=== PATIENT | female | born 1985 | race Caucasian/White ===

== ENCOUNTER 2018-01-04 22:23 | Emergency (ER) | payer SELFPAY ==
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
[2018-01-04 23:40] LABS: ABS Basophils 0 10^3/ul (0-0.2); ABS Eosinophils 0.1 10^3/ul (0-0.6); ABS Lymphocytes 2.7 10^3/ul (1.0-4.8); ABS Monocytes 0.5 10^3/ul (0-0.8); ABS Neutrophils 4.7 10^3/ul (1.5-7.7); ABS Nucleated RBC 0 10^3/ul; Eosinophil % 0.9 % (0-6); Hematocrit 40 % (35-47); Hemoglobin 13.8 g/dl (12.0-16.0); Lymphocyte % 33.5 % (25-47); Mean Corpuscular HGB Conc 34 g/dl (31-36); Mean Corpuscular Hemoglobin 32 pg (27-31); Mean Corpuscular Volume 92 fL (80-97); Mean Platelet Volume 7.9 um3 (7.4-10.4); Nucleated Red Blood Cells % 0.1; Platelet Count 205 10^3/ul (150-450); Red Blood Count 4.36 10^6/ul (4.00-5.40); Red Cell Distribution Width 13 % (10.5-15)
[2018-01-04 23:50] LABS: Urine Appearance Clear; Urine Blood Negative (Negative); Urine Color Yellow; Urine Ketones Trace (Negative); Urine Protein Negative (Negative); Urine Urobilinogen Negative (Negative)
[2018-01-05] LABS: EGFR Non-African American 79.7 (>60)
[2018-01-05 05:14] VITALS: BP 120/71
== END 2018-01-05 04:45 | disposition home or self-care (01) ==
LOC: ED 22:23
DX: R45.851 Suicidal ideations (principal)
CPT/HCPCS: 36415; 80053; 80307; 80320; 80329; 81003; 84702; 85025; 99284; G0480

== ENCOUNTER 2018-07-25 11:19 | Inpatient (IN) | payer BC, OTHER ==
--- NOTE | 2018-07-25 11:39 | ED ---
Substance Abuse/Use - HPI Summary HPI Summary: A 33 y/o F presents to ED s/p Rx overdose as suicide attempt onset approx 1030. She says she took Oxymorphone 100mg and Klonopin 12 mg. 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 Associated sx: tired. She says she cant take care of her house. Per , pt has been going downhill since they bought their house. She left the house to go running, and he knew something was wrong and drove around looking for her. She previously tried to kill herself via OD in 2011. She has had several past admissions. PMHx: bipolar with psychotic features. - History Of Current Complaint Chief Complaint: EDOverdose Stated Complaint: OD PER P.O.A. Time Seen by Provider: 07/25/18 11:31 Hx Obtained From: Patient, Family/World History Teacher - Onset/Duration of Drug/ETOH Abuse: Hours - ~ 1 hour FENCE E[employer] SUPERVISOR Ingestion History: Type/Name Of Drug - see HPI, Approximate Time Of Ingestion - ~ 1030 Overdose Characteristics: Oral Associated Signs And Symptoms: Intentional Ingestion, Other: - pos: tired Related Hx: Prior Psych Admission - Allergies/Home Medications Allergies/Adverse Reactions: Allergies Allergy/AdvReac Type Severity Reaction Status Date / Time citalopram [From Celexa] Allergy Anxiety Verified 07/25/18 11:23 olanzapine [From Zyprexa] Allergy See Comment Verified 07/25/18 11:23 Home Medications: Home Medications Divalproex ER TAB(*) [Depakote ER TAB(*)] 500 mg PO TID 07/25/18 [History Confirmed 07/25/18] clonazePAM TAB(*) [KlonoPIN TAB(*)] 1 mg PO BEDTIME 07/25/18 [History Confirmed 07/25/18] risperiDONE TAB* [RisperDAL*] 2 mg PO DAILY 07/25/18 [History Confirmed 07/25/18 ] PMH/Surg Hx/FS Hx/Imm Hx Previously Healthy: No Sensory History: Denies: Hx Legally Blind, Hx Deafness Opthamlomology History: Denies: Hx Legally Blind Psychiatric History: Reports: Hx Inpatient Treatment, Hx Suicide Attempt, Hx of Violent Episodes Against Others Denies: Hx Eating Disorder Infectious Disease History: No Infectious Disease History: Denies: Traveled Outside the US in Last 30 Days - Family History Known Family History: Negative: Hypertension - Social History Occupation: Employed Full-time Lives: With Family Alcohol Use: None Hx Substance Use: No Substance Use Type: Reports: None Hx Tobacco Use: No Smoking Status (MU): Never Smoked Tobacco Review of Systems Positive: Fatigue - tired Psychological: Other - pos: SI attempt All Other Systems Reviewed And Are Negative: Yes Physical Exam - Summary Physical Exam Summary: GENERAL: Patient is a well-developed and nourished FEMALE who is lying comfortable in the stretcher. Patient is not in any acute respiratory distress. HEAD AND FACE: Normocephalic EYES: PERRLA, EOMI x 2. EARS: Hearing grossly intact. MOUTH: Oropharynx within normal limits. NECK: Supple, trachea is midline, no adenopathy, no JVD, no carotid bruit. CHEST: Symmetric, no tenderness at palpation LUNGS: Clear to auscultation bilaterally. No wheezing or crackles. CVS: Regular rate and rhythm, S1 and S2 present, no murmurs or gallops appreciated. ABDOMEN: Soft, non-tender. Bowel sounds are normal. No abdominal abnormal pulsations. EXTREMITIES: Full ROM in all major joints, no edema, no cyanosis or clubbing. NEURO: Alert and oriented x 3. No acute neurological deficits. Speech is normal and follows commands. SKIN: Dry and warm PSYCH: Flat affect, definite SI Triage Information Reviewed: Yes Vital Signs On Initial Exam: Initial Vitals Temp Pulse Resp BP Pulse Ox 97.1 F 96 16 110/68 96 07/25/18 11:20 07/25/18 11:20 07/25/18 11:20 07/25/18 11:20 07/25/18 11:20 Vital Signs Reviewed: Yes Diagnostics - Vital Signs Vital Signs Temp Pulse Resp BP Pulse Ox 07/25/18 11:20 97.1 F 96 16 110/68 96 - Laboratory Result Diagrams: 07/25/18 12:36 07/25/18 12:36 Lab Statement: Any lab studies that have been ordered have been reviewed, and results considered in the medical decision making process. - EKG 1138 Cardiac Rate: NL - 77 bpm EKG Rhythm: Sinus Rhythm Summary of EKG Findings: Nml interval Re-Evaluation - Re-Evaluation 1 Re-Evaluation Time: 12:21 Change: Unchanged Comment: Pt's medication was instant release. Course/Dx - Course Course Of Treatment: Pt is a 33 y/o F who OD'ed as suicide attempt on Klonopin 12mg and Oxymorphone 100mg at approx 1030. 1219: Spoke with poison control who recommends EKG, tylenol/aspirin levels, and 6 hours observation from ED arrival. Case discussed with hospitalist, Dr. Kuhn. I discussed results with patient. The patient agrees with this plan. The pt will be admitted. - Diagnoses Provider Diagnoses: Drug overdose, intentional - Physician Notifications Discussed Care Of Patient With: Maria C Kuhn Time Discussed With Above Provider: 13:00 Instructed by Provider To: Admit As Inpatient Discharge - Sign-Out/Discharge Documenting (check all that apply): Patient Departure - ADMIT Patient Received Moderate/Deep Sedation with Procedure: No - Discharge Plan Condition: Stable Disposition: ADMITTED TO [facility] - Billing Disposition and Condition Condition: STABLE Disposition: Admitted to [facility] - Attestation Statements Document Initiated by Scribe: Yes Documenting Scribe: Naida Steen Provider For Whom Scribe is Documenting (Include Credential): Dr. Checo Mehta MD Scribe Attestation: I, archana Wilsoned for Dr. Checo Mehta MD on 07/25/18 at 2116. Scribe Documentation Reviewed: Yes Provider Attestation: The documentation as recorded by the Naida santos accurately reflects the service I personally performed and the decisions made by me, Dr. Checo Mehta MD Status of Scribe Document: Viewed
[2018-07-25] MEDS ORDERED: NS 0.9% 1000 ML** 1,000 ML IV ONE (12:05)
[2018-07-25] MEDS ORDERED: Naloxone* 0.4 MG/ML 1 ML VIAL IV PUSH ONE (12:06)
[2018-07-25 12:48] LABS: ABS Basophils 0 10^3/ul (0-0.2); ABS Eosinophils 0 10^3/ul (0-0.6); ABS Lymphocytes 1.8 10^3/ul (1.0-4.8); ABS Monocytes 0.6 10^3/ul (0-0.8); ABS Neutrophils 4.9 10^3/ul (1.5-7.7); ABS Nucleated RBC 0 10^3/ul; Eosinophil % 0.2 %; Hematocrit 41 % (33-41); Hemoglobin 13.8 g/dL (12.0-16.0); Mean Corpuscular HGB Conc 33 g/dL (31-36); Mean Corpuscular Hemoglobin 31 pg (27-31); Mean Corpuscular Volume 93 fL (80-97); Mean Platelet Volume 8.1 fL (7.4-10.4); Nucleated Red Blood Cells % 0.1; Platelet Count 166 10^3/uL (150-450); Red Blood Count 4.43 10^6 /uL (3.70-4.87); Red Cell Distribution Width 13 % (10.5-15); White Blood Count 7.3 10^3/uL (3.5-10.8)
[2018-07-25 13:05] LABS: ALT 6 U/L (7-52); AST 11 U/L (13-39); Albumin 3.9 g/dL (3.2-5.2); Albumin/Globulin Ratio 1.8 (1-3); Alkaline Phosphatase 68 U/L (34-104); Anion Gap 5 mmol/L (2-11); BUN/Creatinine Ratio 11.1 (8-20); Blood Urea Nitrogen 9 mg/dL (6-24); CO2 Carbon Dioxide 26 mmol/L (22-32); Calcium 8.9 mg/dL (8.6-10.3); Chloride 110 mmol/L (101-111); EGFR African American 98.5 (>60); EGFR Non-African American 81.4 (>60); Globulin 2.2 g/dL (2-4); Glucose 75 mg/dL (70-100); Potassium 4.3 mmol/L (3.5-5.0); Sodium 141 mmol/L (135-145); Total Protein 6.1 g/dL (6.4-8.9)
[2018-07-25 13:11] LABS: HCG Pregnancy < 0.60 mIU/mL
[2018-07-25 13:32] LABS: Acetaminophen < 15 mcg/mL; Alcohol < 10 mg/dL (<10); Salicylate < 2.50 mg/dL (<30)
[2018-07-25 13:47] LABS: TSH (Thyroid Stimulating Horm) 1.83 mcIU/mL (0.34-5.60)
[2018-07-25] MEDS ORDERED: PROCHLORPERAZINE INJ 5 MG/ML 2 ML VIAL IV PRN (14:04)
[2018-07-25] MEDS ORDERED: Acetaminophen TAB* 325 MG PO PRN (14:04)
[2018-07-25] MEDS: Lactated Ringers 1000 ML Bag* 1,000 ML IV SCH (15:37)
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
[2018-07-26] MEDS ORDERED: Naloxone* 0.4 MG/ML 1 ML VIAL IV PUSH ONE (01:03)
[2018-07-26] MEDS: Lactated Ringers 1000 ML Bag* 1,000 ML IV SCH ×2 (01:52→11:57)
--- NOTE | 2018-07-26 02:30 | PN ---
Hospitalist Progress Note Date of Service: 07/26/18 Cross coverage note: Called to eval patient for visible carotid pulsations and RR 8. RR 8, other VSS pt very lethargic, only responds to voice as I leave room, states slowly: "I'm awake you can ask me questions" pupils equal and pinpoint, reactive to light carotid pulsations visible b/l VBG pH = 7.18 / pCO2 66 Last dose of Narcan over 12 hours ago. Pt administered 0.4mg IV Narcan - had quick improvement in mental status and respirations. Returned to prior status within 60 minutes. Decision made to transfer to ICU for Narcan drip with close monitoring of mental status. Unclear why patient would have more severe symptoms of opioid intoxication now - possible that she took long acting opioids which are still being absorbed. Will also monitor boyfriend - at bedside - as it is possible she could have ingested more opioids in the hospital. Will repeat VBG and other labs after gtt. Noted that salicylates/APAP negative on admission. Low concern for other process or toxic ingestion at this time, as pt had reversal of symptoms with Narcan.
[2018-07-26] MEDS: Naloxone* 2 MG in NS 0.9% 250 ML* 245 ML IV SCH ×2 (02:53→16:03)
[2018-07-26 04:47] LABS: Hematocrit 44 % (33-41); Hemoglobin 14.5 g/dL (12.0-16.0); Mean Corpuscular HGB Conc 33 g/dL (31-36); Mean Corpuscular Hemoglobin 31 pg (27-31); Mean Corpuscular Volume 94 fL (80-97); Mean Platelet Volume 8.4 fL (7.4-10.4); Platelet Count 156 10^3/uL (150-450); Red Blood Count 4.65 10^6 /uL (3.70-4.87); Red Cell Distribution Width 14 % (10.5-15); White Blood Count 6.8 10^3/uL (3.5-10.8)
[2018-07-26 05:08] LABS: Albumin 3.8 g/dL (3.2-5.2); Albumin/Globulin Ratio 1.9 (1-3); BUN/Creatinine Ratio 10.8 (8-20); Calcium 8.6 mg/dL (8.6-10.3); EGFR African American 95.8 (>60); EGFR Non-African American 79.2 (>60); Potassium 3.9 mmol/L (3.5-5.0); Total Bilirubin 0.4 mg/dL (0.2-1.0); Total Protein 5.8 g/dL (6.4-8.9)
[2018-07-26 07:13] LABS: Urine Appearance Clear; Urine Bacteria Absent (Absent); Urine Bilirubin Negative (Negative); Urine Blood 1+ (Negative); Urine Color Yellow; Urine Glucose Negative (Negative); Urine Ketones 1+ (Negative); Urine Nitrite Negative (Negative); Urine Protein Negative (Negative); Urine Red Blood Cell Trace(0-2/hpf) (Absent); Urine Specific Gravity 1.013 (1.010-1.030); Urine Squamous Epithelial Cell Present (Absent); Urine Urobilinogen Negative (Negative); Urine White Blood Cell Trace(0-5/hpf) (Absent)
[2018-07-26 07:43] LABS: Barbiturates Urine Screen None Detected (None Detect); Benzodiazepine Urine Screen None Detected (None Detect); Urine Cannabinoids Screen Presumptive Positive (None Detect)
--- NOTE | 2018-07-26 09:04 | PN ---
Subjective Date of Service: 07/26/18 Interval History: the oxymorphone 100mg was extended release. 12mg (6x2mg) klonopin. Denies other substances. Saw Dr. Santos on 07/15 Andres says she has attempted suicide 3x in last 2 years. Objective Active Medications: Acetaminophen (Tylenol Tab*) 650 mg PO Q6H PRN PRN Reason: pain/fever Lactated Ringer's (Lactated Ringers 1000 Ml Bag*) 1,000 mls @ 100 mls/hr IV PER RATE [facility] Last Admin: 07/26/18 01:52 Dose: 100 mls/hr Naloxone HCl 2 mg/ Sodium (Chloride) 250 mls @ 25 mls/hr IV Q10H [facility] Last Admin: 07/26/18 02:53 Dose: 25 mls/hr Nicotine (Nicotine Inhaler*) 10 mg INH Q2H PRN PRN Reason: CRAVING Prochlorperazine Edisylate (Compazine Inj*) 5 mg IV Q6H PRN PRN Reason: NAUSEA/VOMITING Vital Signs - 8 hr 07/26/18 07/26/18 07/26/18 02:42 02:43 02:45 Temperature 99.0 F Pulse Rate 68 81 88 Respiratory 13 16 13 Rate Blood Pressure 96/66 96/66 100/59 (mmHg) O2 Sat by Pulse 95 96 96 Oximetry 07/26/18 07/26/18 07/26/18 03:00 03:01 03:30 Temperature Pulse Rate 75 75 75 Respiratory 14 13 11 Rate Blood Pressure 99/60 110/65 (mmHg) O2 Sat by Pulse 95 95 98 Oximetry 07/26/18 07/26/18 07/26/18 04:00 04:24 04:33 Temperature 99.1 F Pulse Rate 71 78 Respiratory 9 18 Rate Blood Pressure 107/63 108/62 (mmHg) O2 Sat by Pulse 98 97 Oximetry 07/26/18 07/26/18 07/26/18 05:00 05:30 06:00 Temperature Pulse Rate 62 68 60 Respiratory 13 18 23 Rate Blood Pressure 106/60 91/66 89/63 (mmHg) O2 Sat by Pulse 95 96 96 Oximetry 07/26/18 07/26/18 07/26/18 06:30 07:00 07:02 Temperature Pulse Rate 71 71 71 Respiratory 25 15 18 Rate Blood Pressure 91/57 99/62 (mmHg) O2 Sat by Pulse 97 96 95 Oximetry 07/26/18 07/26/18 07/26/18 07:30 08:00 08:01 Temperature 98.7 F Pulse Rate 66 62 58 Respiratory 14 18 13 Rate Blood Pressure 93/60 101/54 (mmHg) O2 Sat by Pulse 94 94 95 Oximetry 07/26/18 08:28 Temperature Pulse Rate Respiratory 14 Rate Blood Pressure (mmHg) O2 Sat by Pulse Oximetry Oxygen Devices in Use Now: None Result Diagrams: 07/26/18 04:34 07/26/18 04:34 Microbiology and Other Data: Microbiology 07/26/18 02:52 Nasal Screen MRSA (PCR) - Final Nasal Mrsa Not Detected Assess/Plan/Problems-Billing Assessment:
[2018-07-26] MEDS ORDERED: Al Hydrox/Mg Hydrox/Simet LIQ* 30 ML UDC PO PRN (14:03)
[2018-07-26 14:59] VITALS: BP 98/53
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
[2018-07-27] MEDS: Vitamin THERAPEUTIC TAB PO SCH (08:07)
[2018-07-27 08:34] LABS: HDL Cholesterol 32.1 mg/dL
[2018-07-27] MEDS: Naloxone* 2 MG in NS 0.9% 250 ML* 245 ML IV SCH (09:32)
[2018-07-28] MEDS: Vitamin THERAPEUTIC TAB PO SCH (09:05)
[2018-07-28] MEDS: risperiDONE TAB* 2 MG PO SCH (09:05)
[2018-07-28] MEDS: Divalproex ER TAB(*) 500 MG PO SCH ×2 (09:05→21:09)
[2018-07-28] MEDS: Nicotine Inhaler* 10 MG AMP INH PRN (14:28)
[2018-07-28] MEDS: Mouth Piece, Nicotine* 1 EACH CARTRIDGE ONE (14:30)
--- NOTE | 2018-07-28 19:22 | PN ---
Subjective - Subjective Date of Service: 07/28/18 Service Type: 49033 Hosp care 25 min moderate complexity Subjective: Gurvinder hasn't been a problem on the unit until her came for visit. He wanted to comein with contrabands like cell phones he wasn't happy and so was she unhappy. Otherwise she did stay to self mostly and was foung eating by the exit door as she was expecting her . Objective - General Observations Appearance: Well Groomed Appears Stated Age: Yes Stature: WNL Posture: WNL Eye Contact: Avoidant Behavior/Activity: WNL - Interaction Observations Attitude Towards Examiner: Cooperative Stated Mood: Anxious Affect: Restricted Speech Pattern/Tone: Clear Thought Process: Coherent, Goal Directed Perception: WNL Hallucination Type: None Delusion Type: None - Cognitive Function Orientation: A&O x 4 Level of Consciousness: Alert Cognition: WNL Estimated Intelligence: Normal Insight: WNL Judgment Within Normal Limits: No Ability to Make Reasonable Decisions: Mildly Impaired - Medication Compliance Cooperative with Inpatient Medication Regimen: Yes - Group Participation Participates in Group Activities: No Assessment - Assessment Merits Inpatient Hospitalization: For Immediate Safety, For Stabilization, For Ongoing Evaluation, Pending Safe DC Plan Plan - Plan Treatment Plan: Name: GURVINDER PABLO Birthdate: 1985 [id number] Continued Medication Management: Continue Outpt Medication Medications: Current Medications Acetaminophen (Tylenol Tab*) 650 mg PO Q6H PRN PRN Reason: pain/fever Al Hydrox/Mg Hydrox/Simethicone (Maalox Plus*) 30 ml PO Q4H PRN PRN Reason: INDIGESTION Divalproex Sodium (Depakote Er Tab(*)) 500 mg PO QAM [facility] Last Admin: 07/28/18 09:05 Dose: 500 mg Divalproex Sodium (Depakote Er Tab(*)) 1,000 mg PO BEDTIME [facility] Lactated Ringer's (Lactated Ringers 1000 Ml Bag*) 1,000 mls @ 100 mls/hr IV PER RATE [facility] Last Admin: 07/26/18 11:57 Dose: 100 mls/hr Multivitamins (Theragran Tab*) 1 tab PO DAILY [facility] Last Admin: 07/28/18 09:05 Dose: 1 tab Nicotine (Nicotine Inhaler*) 10 mg INH Q2H PRN PRN Reason: CRAVING Last Admin: 07/28/18 14:28 Dose: 10 mg Nicotine (Nicotine Patch 14 Mg/24 Hr*) 1 patch TRANSDERM DAILY [facility] Pharmacy Profile Note (Nicotine Patch Removal Note*) 1 note PATCH OFF 2100 [facility] Prochlorperazine Edisylate (Compazine Inj*) 5 mg IV Q6H PRN PRN Reason: NAUSEA/VOMITING Risperidone (Risperdal*) 2 mg PO DAILY [facility] Last Admin: 07/28/18 09:05 Dose: 2 mg - Discharge Plan Discharge Plan: Drug/Alcohol Rehab
[2018-07-28] MEDS: Nicotine Patch Removal NOTE PATCH OFF SCH (22:50)
[2018-07-28] MEDS: Nicotine PATCH 14 MG/24 HR* PATCH TRANSDERM SCH (22:50)
[2018-07-29] MEDS ORDERED: Mouth Piece, Nicotine* 1 EACH CARTRIDGE ONE (08:47)
[2018-07-29] MEDS: Nicotine PATCH 14 MG/24 HR* PATCH TRANSDERM SCH (08:48)
[2018-07-29] MEDS: Divalproex ER TAB(*) 500 MG PO SCH ×2 (08:48→21:01)
[2018-07-29] MEDS: Nicotine Inhaler* 10 MG AMP INH PRN ×2 (08:48→12:45)
[2018-07-29] MEDS: Vitamin THERAPEUTIC TAB PO SCH (08:48)
[2018-07-29] MEDS: Mouth Piece, Nicotine* 1 EACH CARTRIDGE ONE (08:48)
[2018-07-29] MEDS: risperiDONE TAB* 2 MG PO SCH (08:48)
--- NOTE | 2018-07-29 16:33 | PN ---
Subjective - Subjective Date of Service: 07/29/18 Service Type: 82225 Hosp care 25 min moderate complexity Subjective: Patient is pleasant and cooperative with interview. She reports feeling "overwhelmingness and despair" prior to suicide attempt. She states that "the problem is mainly me - I can't deal" in regards to caring for her 's medical needs. She states that they spend most of their time in one room due his allergy to dust and that she must abide various routines. She states "I feel I'm a bad person." Patient states that she was fired from [employer] last fall due to multiple call-ins r/t her own mental illness. She states she utilizes cannabis to "calm the vibrations all over my body." She states she sometimes skips taking medications in order to gain full effect from marijuana. She is receptive to psychoeducation that the "vibrating" may be a symptom of arcelia. She states that her mother is coming tomorrow and visiting for one week. She is agreeable to treatment team meeting with her, as well. Objective - General Observations Appearance: Well Groomed Stature: WNL Posture: WNL Eye Contact: Intermittent Behavior/Activity: Impulsive - Interaction Observations Attitude Towards Examiner: Cooperative Stated Mood: Euthymic Speech Pattern/Tone: Clear, Appropriate, Normal Volume Thought Process: Coherent Perception: WNL Thought Content: WNL Hallucination Type: Denies Delusion Type: Denies - Cognitive Function Orientation: A&O x 4 Level of Consciousness: Alert Cognition: WNL Estimated Intelligence: Normal Insight: WNL Judgment Within Normal Limits: No Ability to Make Reasonable Decisions: Moderately Impaired - Medication Compliance Cooperative with Inpatient Medication Regimen: Yes - Group Participation Participates in Group Activities: Yes Assessment - Assessment Merits Inpatient Hospitalization: For Immediate Safety, For Stabilization Plan - Plan Treatment Plan: Name: GURVINDER PABLO Birthdate: 1985 [id number] continue acute intensive psychiatric treatment. obtain valproic acid level. collaborate with outpatient providers. schedule family meeting with patient's and mother. Medications: Current Medications Acetaminophen (Tylenol Tab*) 650 mg PO Q6H PRN PRN Reason: pain/fever Al Hydrox/Mg Hydrox/Simethicone (Maalox Plus*) 30 ml PO Q4H PRN PRN Reason: INDIGESTION Divalproex Sodium (Depakote Er Tab(*)) 500 mg PO QAM [facility] Last Admin: 07/29/18 08:48 Dose: 500 mg Divalproex Sodium (Depakote Er Tab(*)) 1,000 mg PO BEDTIME [facility] Last Admin: 07/28/18 21:09 Dose: 1,000 mg Multivitamins (Theragran Tab*) 1 tab PO DAILY [facility] Last Admin: 07/29/18 08:48 Dose: 1 tab Nicotine (Nicotine Inhaler*) 10 mg INH Q2H PRN PRN Reason: CRAVING Last Admin: 07/29/18 12:45 Dose: 10 mg Nicotine (Nicotine Patch 14 Mg/24 Hr*) 1 patch TRANSDERM DAILY [facility] Last Admin: 07/29/18 08:48 Dose: Not Given Pharmacy Profile Note (Nicotine Patch Removal Note*) 1 note PATCH OFF 2100 [facility] Last Admin: 07/28/18 22:50 Dose: Not Given Risperidone (Risperdal*) 2 mg PO DAILY [facility] Last Admin: 07/29/18 08:48 Dose: 2 mg - Discharge Plan Discharge Plan: Inpatient Hospitalization Outpatient Program: [facility]
[2018-07-29] MEDS: Nicotine Patch Removal NOTE PATCH OFF SCH (21:02)
[2018-07-30] MEDS: Divalproex ER TAB(*) 500 MG PO SCH ×2 (08:22→20:37)
[2018-07-30] MEDS: risperiDONE TAB* 2 MG PO SCH (08:22)
[2018-07-30] MEDS: Vitamin THERAPEUTIC TAB PO SCH (08:22)
[2018-07-30] MEDS: Nicotine PATCH 14 MG/24 HR* PATCH TRANSDERM SCH (08:23)
[2018-07-30] MEDS: Nicotine Inhaler* 10 MG AMP INH PRN ×2 (11:00→16:32)
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
[2018-07-30] MEDS: Nicotine Patch Removal NOTE PATCH OFF SCH (21:48)
[2018-07-31] MEDS: Nicotine PATCH 14 MG/24 HR* PATCH TRANSDERM SCH (09:00)
[2018-07-31] MEDS: Vitamin THERAPEUTIC TAB PO SCH ×2 (09:00→09:01)
[2018-07-31] MEDS: Nicotine Inhaler* 10 MG AMP INH PRN (09:00)
--- NOTE | 2018-07-31 11:55 | DCNOTE ---
Subjective - Subjective Service Types: 62109 Hosp DC Day Mgmt complex over 30 min Discharge Date: 07/31/18 Subjective: Patient reports desire to be discharged. Her mother was present for discharge planning discussion. We discussed family concerns and dynamics of her marriage. Patient denies is controlling, manipulative or such. Patient reports she has been "running from the situation, not my " in regards to being overwhelmed with unpacking and organizing their dwelling. Patient reports desire to participate in [facility] program. Objective - Appearance Appearance: Well Developed/Nourished Dysmorphic Features: No Hygiene: Normal Grooming: Well Kept - Behavior Psychomotor Activities: Normal Exhibits Abnormal Movement: No - Attitude and Relatedness Attitude and Relatedness: Cooperative Eye Contact: Good - Speech Quality: Unpressured Latencies: Normal Quantity: Appropriate - Mood Patient's Decription of Mood: "Okay" - Affect Observed Affect: Good Affect Consistent with: Euthymia - Thought Process Patient's Thought Process: Coherent, Goal Directed Thought Content: No Passive Wish, No Suicidal Planning, No Homicidal Ideation, No Paranoid Ideation - Sensorium Experiencing Hallucinations: No, Sensorium is Clear Type of Hallucinations: Visual: No, Auditory: No, Command: No - Level of Consciousness Level of Consciousness: Alert Orientation: Yes Intact, Yes Orientated to Time, Yes Orientated to Place, Yes Orientated to Person - Impulse Control Impulse Control: Intact - Insight and Judgement Insight and Judgement: Fair - Group Participation Particating in Group Activities: Yes - Medication Management Medication Management Adherence: Yes DC Assessment - Assessment Clinical Impression: 33yo female who transferred to [facility] after stabilization in ICU s/p overdose attempt. She has participated fully in [facility] programming and stabilized on current medications. Merits Inpatient Hospitalization: No Clear for Discharge: Adequate Clinical Respons, Acceptable Safety Profile Inpatient DSM-V Dx: F31.4 Discharge Planning - Discharge Planning Discharge Plan: Outpatient Follow Up Outpatient Program: [facility] Recommendations for Continuing Care: Medication Management, Psychotherapy, Substance Abuse Counseling, Primary Care Followup Medications: Current Medications Divalproex Sodium (Depakote Er Tab(*)) 1,500 mg PO BEDTIME ALYSE Risperidone (Risperdal*) 2 mg PO BEDTIME ALYSE Discharge Planning: Prescriptions provided for discharge [x] Yes [] No Follow up care details as per social work arrangements: [facility]: You have a follow up appointment with Dr. Santos tomorrow, at 2:30pm. Please let them know you are recommended to [facility]. [facility]: You have an intake appointment scheduled on Sunday , 08/07 with Ngozi at 8:30am to fill out necessary paperwork. Patient response to discharge plan: [x] eager for discharge [x] agreeable with discharge plan [] ambivalent about discharge [] disagrees with discharge today
[2018-07-31] MEDS ORDERED: Divalproex ER TAB(*) 500 MG PO SCH (21:00)
[2018-07-31] MEDS ORDERED: risperiDONE TAB* 2 MG PO SCH (21:00)
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
== END 2018-07-31 13:30 | disposition home or self-care (01) | DRG 753 ==
LOC: ED 11:19 → MEDTELE 14:00 → ICU 07-26 02:16 → BSU 07-26 14:03 → OBSVTOIN 07-26 14:03
PROVIDERS: ADMIT Internal Medicine; ATTEND Psychiatry & Neurology Psychiatry
DX: F31.4 Bipolar disorder, current episode depressed, severe, without psychotic features (principal); T40.2X2A Poisoning by other opioids, intentional self-harm, initial encounter; T42.4X2A Poisoning by benzodiazepines, intentional self-harm, initial encounter; R41.82 Altered mental status, unspecified; F60.3 Borderline personality disorder; Z91.5 Personal history of self-harm; Z88.8 Allergy status to other drugs, medicaments and biological substances; Y92.9 Unspecified place or not applicable; Z56.0 Unemployment, unspecified; Z81.1 Family history of alcohol abuse and dependence; Z81.8 Family history of other mental and behavioral disorders; Z80.3 Family history of malignant neoplasm of breast
CPT/HCPCS: 36415; 80053; 80061; 80164; 80307; 80320; 80329; 81003; 81015; 82803; 83036; 84443; 84702; 85025; 85027; 87086; 87641; 93005; 99222; 99232; 99233; 99238; 99285; A9270-GY; G0480; J2310

== ENCOUNTER 2018-08-14 15:51 | Emergency (ER) | payer BC, MEDICAID, OTHER ==
--- NOTE | 2018-08-14 16:36 | ED ---
Psychiatric Complaint - HPI Summary HPI Summary: Pt is a 33 y/o F presenting to the ED with a chief psychiatric complaint. She states she had a suicide attempt about two weeks ago, then got a hold of some marijuana. The issue with this was that she felt unwell when she smoked marijuana, and started thinking that the suicide attempt came from how she felt when she was smoking marijuana. Per , she has compulsive behavior to go and get marijuana, and one morning she tried to run away 6x to get marijuana. [facility] told her to come and get evaluated here in the ED. She currently denies SI/HI, hallucinations, feeling depressed or anxious, but she does feel somewhat woozy. 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 Onset/Duration: Gradual Onset, Lasting Days, Resolved Timing: Intermittent Episode Lasting - days Severity Initially: Moderate Severity Currently: Mild Character: Depressed, Anxious Aggravating Factor(s): Drug Use - marijuana Alleviating Factor(s): Nothing Associated Signs And Symptoms: Positive: Paranoid Behavior Has Suicidal: Denies: Thoughts Has Homicidal: Denies: Thoughts - Allergies/Home Medications Allergies/Adverse Reactions: Allergies Allergy/AdvReac Type Severity Reaction Status Date / Time citalopram [From Celexa] Allergy Anxiety Verified 08/14/18 16:00 olanzapine [From Zyprexa] Allergy See Comment Verified 08/14/18 16:00 Home Medications: Home Medications [place] Carbonate [[place] Carbonate 600 mg cap] 600 mg PO DAILY 08/14/18 [ History Confirmed 08/14/18] clonazePAM TAB(*) [KlonoPIN TAB(*)] 1 mg PO DAILY 08/14/18 [History Confirmed ] risperiDONE TAB* [Risperdal*] 2 mg PO DAILY 08/14/18 [History Confirmed 08/14/18 ] PMH/Surg Hx/FS Hx/Imm Hx Previously Healthy: Yes Endocrine/Hematology History: Denies: Hx Diabetes Cardiovascular History: Denies: Hx Hypertension Sensory History: Denies: Hx Contacts or Glasses, Hx Legally Blind, Hx Deafness, Hx Hearing Aid Opthamlomology History: Denies: Hx Contacts or Glasses, Hx Legally Blind Psychiatric History: Reports: Hx Inpatient Treatment, Hx Suicide Attempt, Hx of Violent Episodes Against Others Denies: Hx Eating Disorder Infectious Disease History: No Infectious Disease History: Denies: Traveled Outside the [place] in Last 30 Days - Family History Known Family History: Negative: Hypertension - Social History Alcohol Use: None Hx Substance Use: Yes Substance Use Type: Reports: Marijuana Hx Tobacco Use: No Smoking Status (MU): Never Smoked Tobacco Review of Systems Positive: Fatigue Negative: Anxious, Depressed, Other - SI/HI All Other Systems Reviewed And Are Negative: Yes Physical Exam - Summary Physical Exam Summary: Constitutional: Well-developed, Well-nourished, Alert. (-) Distressed Skin: Warm, Dry HENT: Normocephalic; Atraumatic Eyes: Conjunctiva normal Neck: Musculoskeletal ROM normal neck. (-) JVD, (-) Stridor, (-) Tracheal deviation Cardio: Rhythm regular, rate normal, Heart sounds normal; Intact distal pulses; The pedal pulses are 2+ and symmetric. Radial pulses are 2+ and symmetric. (-) Murmur Pulmonary/Chest wall: Effort normal. (-) Respiratory distress, (-) Wheezes, (-) Rales Abd: Soft, (-) tenderness, (-) Distension, (-) Guarding, (-) Rebound Musculoskeletal: (-) Edema Lymph: (-) Cervical adenopathy Neuro: Alert, Oriented x3 Psych: Mood and affect implies poor judgment Triage Information Reviewed: Yes Vital Signs On Initial Exam: Initial Vitals Temp Pulse Resp BP Pulse Ox 97.5 F 81 17 114/70 100 08/14/18 15:54 08/14/18 15:54 08/14/18 15:54 08/14/18 15:54 08/14/18 15:54 Vital Signs Reviewed: Yes Diagnostics - Vital Signs Vital Signs Temp Pulse Resp BP Pulse Ox 08/14/18 15:54 97.5 F 81 17 114/70 100 - Laboratory Result Diagrams: 08/14/18 16:32 08/14/18 16:32 Lab Statement: Any lab studies that have been ordered have been reviewed, and results considered in the medical decision making process. Course/Dx - Course Course Of Treatment: Pt is a 33 y/o F presenting to the ED for a psychiatric complaint. She tried to commit suicide about 2 weeks ago, and is now realizing that she thinks her suicidal attempt may have been because of the marijuana she used. Per , she has compulsive behavior to go and get marijuana, and one morning she tried to run away 6x to get marijuana. [facility] told her to come and get evaluated here in the ED. She currently denies SI/HI, hallucinations, feeling depressed or anxious, but she does feel somewhat woozy. The pt will be admitted pending evaluation by provider in the morning. - Differential Dx/Clinical Impression Provider Diagnosis: Drug-induced psychotic disorder Discharge - Sign-Out/Discharge Documenting (check all that apply): Sign-Out Patient Signing out patient TO: Raul Menezes Patient Received Moderate/Deep Sedation with Procedure: No - Discharge Plan Condition: Stable Referrals: No Primary Care Phys,NOPCP [Primary Care Provider] - - Billing Disposition and Condition Condition: STABLE - Attestation Statements Document Initiated by Scribe: Yes Documenting Scribe: Kathy Ordonez Provider For Whom Scribe is Documenting (Include Credential): Laila Avalos MD. Scribe Attestation: IKathy, scrstephaneed for Laila Kaur MD. on 08/14/18 at 2230. Scribe Documentation Reviewed: Yes Provider Attestation: The documentation as recorded by the scribeKathy accurately reflects the service I personally performed and the decisions made by me, Laila Kaur MD. Status of Scribe Document: Viewed
[2018-08-14 16:39] LABS: ABS Basophils 0 10^3/ul (0-0.2); ABS Eosinophils 0.1 10^3/ul (0-0.6); ABS Lymphocytes 2.1 10^3/ul (1.0-4.8); ABS Monocytes 0.5 10^3/ul (0-0.8); ABS Neutrophils 4.9 10^3/ul (1.5-7.7); ABS Nucleated RBC 0 10^3/ul; Eosinophil % 1.1 %; Hematocrit 41 % (35-47); Lymphocyte % 27.2 %; Mean Corpuscular HGB Conc 34 g/dL (31-36); Mean Corpuscular Hemoglobin 32 pg (27-31); Mean Corpuscular Volume 93 fL (80-97); Mean Platelet Volume 7.8 fL (7.4-10.4); Nucleated Red Blood Cells % 0; Platelet Count 191 10^3/uL (150-450); Red Blood Count 4.43 10^6 /uL (3.70-4.87); Red Cell Distribution Width 14 % (10.5-15); White Blood Count 7.6 10^3/uL (3.5-10.8)
[2018-08-14 16:45] LABS: Urine Appearance Clear; Urine Bilirubin Negative (Negative); Urine Blood Negative (Negative); Urine Color Straw; Urine Glucose Negative (Negative); Urine Ketones Negative (Negative); Urine Nitrite Negative (Negative); Urine Protein Negative (Negative); Urine Specific Gravity 1.004 (1.010-1.030); Urine Urobilinogen Negative (Negative)
[2018-08-14 16:55] LABS: ALT 7 U/L (7-52); AST 13 U/L (13-39); Albumin 4.2 g/dL (3.2-5.2); Albumin/Globulin Ratio 1.8 (1-3); Alkaline Phosphatase 66 U/L (34-104); Anion Gap 5 mmol/L (2-11); BUN/Creatinine Ratio 8.6 (8-20); Blood Urea Nitrogen 7 mg/dL (6-24); CO2 Carbon Dioxide 28 mmol/L (22-32); Calcium 9.5 mg/dL (8.6-10.3); Chloride 109 mmol/L (101-111); EGFR African American 98.5 (>60); EGFR Non-African American 81.4 (>60); Globulin 2.4 g/dL (2-4); Glucose 92 mg/dL (70-100); Sodium 142 mmol/L (135-145); Total Protein 6.6 g/dL (6.4-8.9)
[2018-08-14 16:57] LABS: Urine Benzodiazepine Screen None Detected (None Detect); Urine Opiates Screen None Detected (None Detect)
[2018-08-14 17:20] LABS: Acetaminophen < 15 mcg/mL; Alcohol < 10 mg/dL (<10); Salicylate < 2.50 mg/dL (<30)
[2018-08-14 17:33] LABS: TSH (Thyroid Stimulating Horm) 3.05 mcIU/mL (0.34-5.60)
[2018-08-14 17:39] LABS: HCG Pregnancy 0.63 mIU/mL
--- NOTE | 2018-08-14 22:39 | ED ---
Progress - Progress Note Progress Note: Receiving sign out from Dr. Kaur at shift change, pending MHE. Pt has already been medically cleared and will have her evaluation in the morning. Pt's condition has been stable. She will be signed out to Dr. Ruelas at shift change, pending MHE. Course/Dx - Diagnoses Provider Diagnoses: Drug-induced psychotic disorder Discharge - Sign-Out/Discharge Documenting (check all that apply): Sign-Out Patient, Receiving Sign-Out Signing out patient TO: Shaheed Ruelas Receiving patient FROM: Laila Kaur Patient Received Moderate/Deep Sedation with Procedure: No - Discharge Plan Condition: Stable Referrals: No Primary Care Phys,NOPCP [Primary Care Provider] - - Billing Disposition and Condition Condition: STABLE - Attestation Statements Document Initiated by Scribe: Yes Documenting Scribe: Ayla Casper Provider For Whom Scribe is Documenting (Include Credential): Raul Menezes MD Scribe Attestation: IAyla, scribed for Raul Menezes MD on 08/15/18 at 0615. Scribe Documentation Reviewed: Yes Provider Attestation: The documentation as recorded by the Ayla santos accurately reflects the service I personally performed and the decisions made by , Raul Menezes MD Status of Scribe Document: Viewed
--- NOTE | 2018-08-15 07:09 | ED ---
Progress - Progress Note Progress Note: RECEIVING SIGN-OUT FROM DR. MENEZES AT SHIFT CHANGE PENDING MHE. 1005: Consult with Dr. De Anda psych Pt claims to be addicted to marijuana and unable to find rehab. Patient's insists she be admitted. She is not suicidal. Pt on MH hold until social work consult recommends disposition. Dx: cannabis use disorder 1028: Consult with social Jin work Pt will be discharged. She is doing well in out-patient alcohol and drug rehab. Course/Dx - Course Course Of Treatment: RECEIVING SIGN-OUT FROM DR. MENEZES AT SHIFT CHANGE PENDING MHE. 1005: Per kennedy Yeung, patient claims to be addicted to marijuana. Patient's insists she be admitted. She is not suicidal. Pt on MH hold until social work consult recommends disposition. Dx: cannabis use disorder, severe. Consulted with social aleksandr Abdi, who will be discharged with referrals to [facility], and drug/alcohol rehab. - Diagnoses Provider Diagnoses: Cannabis use disorder, severe, dependence Discharge - Sign-Out/Discharge Documenting (check all that apply): Patient Departure - DC, Receiving Sign-Out Receiving patient FROM: Raul Menezes - pending MHE Patient Received Moderate/Deep Sedation with Procedure: No - Discharge Plan Condition: Stable Disposition: HOME Patient Education Materials: Mood Disorders (ED) Referrals: No Primary Care Phys,NOPCP [Primary Care Provider] - - Billing Disposition and Condition Condition: STABLE Disposition: Home - Attestation Statements Document Initiated by Scribe: Yes Documenting Scribe: Naida Steen Provider For Whom Sami is Documenting (Include Credential): Dr. Shaheed Ruelas MD Scribe Attestation: Naida Eduardo scribed for Dr. Shaheed Ruelas MD on 08/16/18 at 0729. Scribe Documentation Reviewed: Yes Provider Attestation: The documentation as recorded by the Naida santos accurately reflects the service I personally performed and the decisions made by me, Dr. Shaheed Ruelas MD Status of Scribe Document: Viewed
[2018-08-15] MEDS ORDERED: risperiDONE TAB* 2 MG PO ONE (10:32)
--- NOTE | 2018-08-15 10:39 | PN ---
Subjective - Subjective Date of Service: 08/15/18 Service Type: 18330 Hosp care 25 min moderate complexity Subjective: Patient is euthymic with bright affect. She reports participating in PROS and attending appointments at [facility]. She endorses difficulty with abstaining from marijuana. She denies SI or passive wish. She declines offer of voluntary admission and states that "after sleeping here overnight, I feel I can do this" in regards to continuing with outpatient treatment. SW contacted [facility] to obtain appointments. Objective - General Observations Appearance: Neat Stature: WNL Posture: WNL Eye Contact: Average Behavior/Activity: WNL - Interaction Observations Attitude Towards Examiner: Cooperative Stated Mood: Euthymic Affect: Bright Speech Pattern/Tone: Clear, Appropriate, Normal Volume Thought Process: Coherent, Goal Directed Perception: WNL Thought Content: WNL Hallucination Type: None Delusion Type: None - Cognitive Function Orientation: A&O x 4 Level of Consciousness: Alert Cognition: WNL Estimated Intelligence: Normal Insight: WNL Judgment Within Normal Limits: Yes Plan - Plan Treatment Plan: Name: GURVINDER WALTERS Birthdate: 1985 [id number] Continued Medication Management: Continue Outpt Medication Medications: Current Medications Risperidone (Risperdal*) 2 mg PO ONCE ONE Stop: 08/15/18 10:33 - Discharge Plan Discharge Plan: Outpatient Follow Up Outpatient Program: [facility] [place]
[2018-08-15 11:06] VITALS: BP 108/40
== END 2018-08-15 11:09 | disposition home or self-care (01) ==
LOC: ED 15:51
DX: F99 Mental disorder, not otherwise specified (principal); T40.7X5A Adverse effect of cannabis (derivatives), initial encounter; F12.90 Cannabis use, unspecified, uncomplicated; Z88.8 Allergy status to other drugs, medicaments and biological substances; Z79.899 Other long term (current) drug therapy; Z91.5 Personal history of self-harm
CPT/HCPCS: 36415; 80053; 80307; 80320; 80329; 81003; 84443; 84702; 85025; 99284; G0480

== ENCOUNTER 2018-10-16 11:39 | Emergency (ER) | payer OTHER ==
[2018-10-16 11:53] VITALS: BP 109/62
== END 2018-10-16 13:31 | disposition left against medical advice (07) ==
LOC: ED 11:39
DX: Z53.21 Procedure and treatment not carried out due to patient leaving prior to being seen by health care provider (principal)
CPT/HCPCS: 99282

== ENCOUNTER 2018-10-16 13:55 | Emergency (ER) | payer OTHER ==
[2018-10-16 14:02] VITALS: BP 107/80
== END 2018-10-16 14:43 | disposition left against medical advice (07) ==
LOC: ED 13:55
DX: Z00.00 Encounter for general adult medical examination without abnormal findings (principal); Z53.21 Procedure and treatment not carried out due to patient leaving prior to being seen by health care provider

== ENCOUNTER 2018-10-21 22:31 | Inpatient (IN) | payer OTHER ==
--- NOTE | 2018-10-21 22:43 | ED ---
Psychiatric Complaint - HPI Summary HPI Summary: The pt is a 33 y/o F brought in by EMS to [facility] with a CC of anxiety. She states that she was trying to check into [facility] but they were closed so she called EMS. She states that her mental state has gotten worse due to a recent move from [place] to [place] in the past year. She states that she has recently been getting stressed out from normal tasks and that she has been scared that something is wrong with her but did not elaborate on what it was. She also stated that she has recently stopped taking Lamictal and was requesting a MHE so she could be approved to take the medication again. She denies any SI and HI. She denies any previous illness and reports no fever, cough, SOB, CP, N/V/D , and headaches. - History Of Current Complaint Chief Complaint: EDMentalHealth Time Seen by Provider: 10/21/18 22:33 Hx Obtained From: Patient ?: No Onset/Duration: Gradual Onset, Still Present - state the feeling has been present for a year Timing: Constant Severity Initially: Mild Severity Currently: Mild Character: Anxious Aggravating Factor(s): Recent Stress - stated that she moved here from [place] and has had a hard time coping., Other - medication change, Lamictal was discontinued. Alleviating Factor(s): Nothing Has Suicidal: Denies: Thoughts, With A Plan Has Homicidal: Denies: Thoughts, With A Plan Recent Stressor(s): Moving about a year ago, recent medication change - Allergies/Home Medications Allergies/Adverse Reactions: Allergies Allergy/AdvReac Type Severity Reaction Status Date / Time citalopram [From Celexa] Allergy Anxiety Verified 10/22/18 14:10 lamotrigine [From Lamictal] Allergy Rash Verified 10/22/18 14:10 olanzapine [From Zyprexa] Allergy See Comment Verified 10/22/18 14:10 risperidone [From Risperdal] Allergy Rash Verified 10/22/18 14:10 Home Medications: Home Medications lamoTRIgine [Lamotrigine] 50 mg PO BID 10/22/18 [History Confirmed 10/22/18] PMH/Surg Hx/FS Hx/Imm Hx Previously Healthy: Yes Endocrine/Hematology History: Denies: Hx Diabetes Cardiovascular History: Denies: Hx Hypertension Sensory History: Denies: Hx Contacts or Glasses, Hx Legally Blind, Hx Deafness, Hx Hearing Aid Opthamlomology History: Denies: Hx Contacts or Glasses, Hx Legally Blind Psychiatric History: Reports: Hx Inpatient Treatment, Hx Suicide Attempt, Hx of Violent Episodes Against Others Denies: Hx Eating Disorder - Surgical History Surgical History: None - Immunization History Immunizations Up to Date: Yes Infectious Disease History: No - Family History Known Family History: Positive: Other - breast carcinoma mother Negative: Hypertension - Social History Occupation: Unemployed Lives: With Family Alcohol Use: None Hx Substance Use: Yes Substance Use Type: Reports: Marijuana Hx Tobacco Use: No Smoking Status (MU): Light Every Day Tobacco Smoker Type: Cigarettes - 1 pack per week Review of Systems Negative: Fever Negative: Chest Pain Negative: Shortness Of Breath, Cough Negative: Vomiting, Diarrhea, Nausea, Other Negative: Headache Positive: Anxious All Other Systems Reviewed And Are Negative: Yes Physical Exam - Summary Physical Exam Summary: Appearance: Well-appearing, Well-nourished, lying in bed comfortable Skin: Warm, dry, no obvious rash Eyes: sclera anicteric, no conjunctival pallor ENT: mucous membranes moist Neck: deferred Respiratory: No signs of respiratory distress Cardiovascular: Appears well perfused, pulses are nml Abdomen: deferred Musculoskeletal: Moving all 4 extremities without obvious discomfort Neurological: Awake and alert, mentation is normal, speech is fluent and appropriate Psychiatric: affect is normal, does not appear anxious or depressed Triage Information Reviewed: Yes Vital Signs On Initial Exam: Last Vital Signs 10/21/18 22:33 Temperature 98.3 F Pulse Rate 78 Respiratory 16 Rate Blood Pressure 113/48 (mmHg) O2 Sat by Pulse 99 Oximetry Vital Signs Reviewed: Yes Diagnostics - Laboratory Result Diagrams: 10/21/18 22:56 10/21/18 22:56 Lab Statement: Any lab studies that have been ordered have been reviewed, and results considered in the medical decision making process. Re-Evaluation - Re-Evaluation First Eval Re-Evaluation Time: 22:44 Change: Unchanged Comment: Medically cleared for a MHU Eval. Course/Dx - Course Course Of Treatment: The pt is a 33 y/o F brought in by EMS to [facility] with a CC of Anxiety. She states that she was trying to check into [facility] but they were closed so she called EMS. She states that her mental state has gotten worse due to a [place] in the past year and a discontinuation of Lamictal. Her PE found that she had no acute abnormalities. She was medically cleared after her PE for a MHU Eval at 2244. Her labratory results show that she has abnormalities in her Urine tests and is positive for cannibis. Dr. Bey recommended the pt be put on hold until later today when she can see an in house psychiatrist at 0315. Pt will be signed out from Dr. Sanchez to Dr. Stroud at shift change 0700 10/22/18 with a Dx of depression and pending a MHU re-eval with a psychiatrist later today. - Differential Dx/Clinical Impression Provider Diagnosis: Mood disorder - Physician Notifications Discussed Care Of Patient With: Ke Bey Time Discussed With Above Provider: 03:15 Instructed by Provider To: Other - Dr. Bey recommended the pt be put on hold until the in house psychiatrist can met with her later today. Discharge - Sign-Out/Discharge Documenting (check all that apply): Sign-Out Patient Signing out patient TO: Filippo Stroud - Discharge Plan Condition: Good Disposition: [place]ATR[facility] [place] [place] Billing Disposition and Condition Condition: GOOD Disposition: Psychiatric Facility [facility] - Attestation Statements Document Initiated by Scribe: Yes Documenting Scribe: Elilot Ramon Provider For Whom Sami is Documenting (Include Credential): Wicho Sanchez MD Scribmiguel Attestation: Elliot Eduardo, scribed for Wicho Sanchez MD on 10/23/18 at 0341. Scribe Documentation Reviewed: Yes Provider Attestation: The documentation as recorded by the Elliot santos accurately reflects the service I personally performed and the decisions made by me, Wicho Sanchez MD Status of Scribe Document: Viewed
--- OUTSIDE RECORDS SUMMARY | 2018-10-21 23:02 | XMS REPORT | Continuity of Care Document ---
:1985 External Reference #:[id number] Author Name Carola Garcia Care Team Providers Name Role Phone Maria C Kuhn M.D. Care Team Information Inseminator Unavailable Payers Date Identification Numbers Payment Provider Subscriber PayID: [id number] [address]ios [address] [place] [address] Social History Type Date Description Comments Sex Unknown Tobacco Use Start: Unknown End: Unknown Patient is a former smoker Smoking Status Reviewed: 10/21/18 Patient is a former smoker Allergies, Adverse Reactions, Alerts Description No Known Drug Allergies Medications Active Medications SIG Qnty Indications Ordering Provider Date Depakote 2 tablets at Unknown 500mg Tablets DR bedtime Clonazepam 1 tablet in am Unknown 1mg Tablets and 1 tablet at bedtime Vital Signs Date Vital Result Comment 10/21/2018 2:21pm Height 65 inches 5'5" Weight 131.00 lb Heart Rate 62 /min BP Systolic Sitting 94 mmHg BP Diastolic Sitting 59 mmHg Body Temperature 98.8 F O2 % BldC Oximetry 99 % BMI (Body Mass Index) 21.8 kg/m2 Encounters Type Date Location Provider Dx Diagnosis Office Visit 07/26/2018 [facility] Mnaohar Pearson MD T42.4x2A Poisoning by 10:11a Elviaocsavana benzodiazepines, Hospitalists intentional self-harm, init R45.851 Suicidal ideations Office 07/25/2018 [facility] Maria C T42.4x2A Poisoning by Visit 10:11a savana Khan M.D. benzodiazepines, Hospitalists intentional self-harm, init R45.851 Suicidal ideations Plan of Treatment Future Appointment(s):10/24/2018 12:00 pm - [facility] Freya Braldey MDR21 Rash and other nonspecific skin [id number] Bipolar disorder, unspecified
[2018-10-21 23:05] LABS: Urine Appearance Cloudy; Urine Bacteria 1+ (Absent); Urine Bilirubin Negative (Negative); Urine Blood 1+ (Negative); Urine Color Amber; Urine Glucose Negative (Negative); Urine Ketones 1+ (Negative); Urine Nitrite Negative (Negative); Urine Protein 1+(30 mg/dL) (Negative); Urine Red Blood Cell Trace(0-2/hpf) (Absent); Urine Specific Gravity 1.016 (1.010-1.030); Urine Squamous Epithelial Cell Present (Absent); Urine Urobilinogen Positive (Negative); Urine White Blood Cell 1+(6-10/hpf) (Absent)
[2018-10-21 23:06] LABS: ABS Lymphocytes 1.5 10^3/ul (1.0-4.8); ABS Monocytes 0.5 10^3/ul (0-0.8); ABS Neutrophils 5.6 10^3/ul (1.5-7.7); Eosinophil % 0.3 %; Hematocrit 40 % (35-47); Hemoglobin 13.4 g/dL (12.0-16.0); Lymphocyte % 19.7 %; Mean Corpuscular HGB Conc 34 g/dL (31-36); Mean Corpuscular Hemoglobin 32 pg (27-31); Mean Corpuscular Volume 94 fL (80-97); Mean Platelet Volume 7.9 fL (7.4-10.4); Platelet Count 172 10^3/uL (150-450); Red Blood Count 4.21 10^6 /uL (3.70-4.87); Red Cell Distribution Width 15 % (10-15); White Blood Count 7.7 10^3/uL (3.5-10.8)
[2018-10-21 23:20] LABS: Urine Benzodiazepine Screen None Detected (None Detect); Urine Opiates Screen None Detected (None Detect)
[2018-10-21 23:25] LABS: ALT 7 U/L (7-52); AST 12 U/L (13-39); Albumin 4.1 g/dL (3.2-5.2); Albumin/Globulin Ratio 1.5 (1-3); Alkaline Phosphatase 75 U/L (34-104); Anion Gap 6 mmol/L (2-11); BUN/Creatinine Ratio 10.6 (8-20); Blood Urea Nitrogen 9 mg/dL (6-24); CO2 Carbon Dioxide 28 mmol/L (22-32); Calcium 9.4 mg/dL (8.6-10.3); Chloride 106 mmol/L (101-111); EGFR African American 93.2 (>60); Globulin 2.7 g/dL (2-4); Glucose 102 mg/dL (70-100); Potassium 4.1 mmol/L (3.5-5.0); Sodium 140 mmol/L (135-145); Total Protein 6.8 g/dL (6.4-8.9)
[2018-10-21 23:30] LABS: Acetaminophen < 15 mcg/mL; Alcohol < 10 mg/dL (<10); Salicylate < 2.50 mg/dL (<30)
[2018-10-21 23:32] LABS: HCG Pregnancy < 0.60 mIU/mL
[2018-10-21 23:45] LABS: TSH (Thyroid Stimulating Horm) 3.13 mcIU/mL (0.34-5.60)
--- NOTE | 2018-10-22 07:16 | ED ---
Progress - Progress Note Progress Note: This patient is a sign-out from Dr. Sanchez [place] Dr. Stroud [place] 69910/22/18 shift change pending psychiatrist evaluation. 902 - Patient's case has been reviewed by MOSES Yeung worker reports that the [place] will be [place] [facility] [place] - Consult/PCP Time Called: 22:44 Re-Evaluation - Re-Evaluation First Eval Comment: Medically cleared for a MHU Eval. Course/Dx - Course Course Of Treatment: This patient is a sign-out from Dr. Sanchez to Dr. Stroud [place] 69910/22/18 shift change pending psychiatrist evaluation. 902 - Patient' s case has been reviewed by MOSES Yeung worker reports that the patient will be admitted [place] [facility] [place]. - Diagnoses Provider Diagnoses: Mood disorder - Provider Notifications Discussed Care Of Patient With: Kraig De Anda Time Discussed With Above Provider: 09:03 Instructed by Provider To: Other - This patient is a sign-out from Dr. Sanchez to Dr. Stroud [place] 69910/22/18 shift change pending psychiatrist evaluation. 902 - Patient's case has been reviewed by MOSES Yeung worker reports that the patient will be admitted to [facility]. Discharge - Sign-Out/Discharge Documenting (check all that apply): Patient Departure - admit, Receiving Sign- Out Receiving patient FROM: Wicho Sanchez - Patient is a sign-out from Dr. Sanchez to Dr. Stroud pending psych eval. - Discharge Plan Condition: Good Disposition: [place]ATR[facility] [place] - Attestation Statements Document Initiated by Scribe: Yes Documenting Scribe: Manoj Joseph Provider For Whom Scribe is Documenting (Include Credential): Dr. Filippo Stroud MD Scribe Attestation: Manoj Eduardo and Frederick Joseph, scribed for Dr. Filippo Stroud MD on 10/22/18 at 1303. Status of Scribe Document: Ready
[2018-10-22] MEDS ORDERED: Al Hydrox/Mg Hydrox/Simet LIQ* 30 ML UDC PO PRN (08:58)
[2018-10-22] MEDS ORDERED: Acetaminophen TAB* 325 MG PO PRN (08:58)
[2018-10-22] MEDS ORDERED: risperiDONE TAB* 2 MG PO SCH (09:00)
[2018-10-22] MEDS ORDERED: hydrOXYzine HCL TAB* 50 MG PO PRN (09:00)
[2018-10-22 11:53] LABS: Lithium < 0.10 mmol/L (0.6-1.2)
[2018-10-22] MEDS ORDERED: Lurasidone(*) 40 MG TAB PO SCH (17:00)
--- NOTE | 2018-10-22 19:46 | HP ---
HISTORY AND PHYSICAL: DATE OF ADMISSION: 10/22/18 PROVIDER: Jennifer Farr NP, in Psychiatry SUPERVISING PHYSICIAN: Kraig De Anda MD.* (DICTATED BY JENNIFER FARR NP) JUSTIFICATION FOR ADMISSION: The patient is in need of 24-hour supervision and care secondary to suicidal ideation. CHIEF COMPLAINT: "I keep running away from my ." HISTORY OF PRESENT ILLNESS: The patient is a 33-year-old , with a history of bipolar disorder with psychotic features who arrives, brought in by ambulance, and is here on a voluntary status after "running away" from her home after her got a concussion and she was supposed to be taking care of him. Isis reports having been diagnosed with bipolar disorder with psychotic features. She states she keeps running away from her even after he got a concussion and she was supposed to take care of him by making a meal. Apparently her has a history of seizures and another disorder and he is disabled. His name is Andres. She states that over the last 8 years she has run away a 1000 or more times. She wants to leave the relationship in some regard, but also feels as though she has responsibilities to stay in the relationship. She states when she runs away she goes out and buys cigarettes or tries to bum them from people. She is trying very hard to make sense of what she is doing, meaning leaving. She very logically states, "I have no money, I have no friends. My is the only friend I have left." Nevertheless, when she visited her parents in [facility] about 2 weeks ago she was having suicidal ideation and was sent to the hospital. Her is worried about her safety and his own safety. She states she wants to get better and she wants to stop running away. She was started on Lamictal and Risperdal in the past. She stopped Risperdal because it gave her tics and she stopped Lamictal because she had a blistering rash on her thighs and believes that she was allergic to it and so stopped it. She is interested in trying new medication, although she is very concerned about side-effects and reactions that she does not like. She was reassured that she could stop medications that she did not like at anytime and we could discuss future plans. At this point, she seems depressed. Her energy is low. She seems to have difficulty concentrating. She chastised herself with some frequency. She sits quite still, seems to have some psychomotor retardation, has suicidal ideation. Interest is minimal. PAST PSYCHIATRIC HISTORY: Isis overdosed on Andres's medication one month ago and she did not seek treatment. Isis was here in July 2018. She has been a client of Dr. Choi at [facility] and has a documented history there of unspecified bipolar disorder. She has been a client of [facility] and currently sees Dr. Santos and Ketty Stewart. According to Andres, recent hospitalizations in the past few years have includes [facility], [facility], [facility], [facility], [facility], [facility], [facility], [facility], [facility], [facility], and [facility]. Prior psychiatric medications and trials include according to Andres olanzapine, which induced psychosis; Haldol, which induced tardive dyskinesia; lamotrigine, which made her suicidal and depressed; lithium, which caused her to be suicidal and depressed; Geodon with unknown response and lurasidone has been ineffective. SUBSTANCE USE TREATMENT: Isis denies history of inpatient substance use treatment. She reports being treated for outpatient substance use in [place], but does not recall the name or location. TRAUMA ABUSE HISTORY: Last summer in 2017, Isis lost a requiring her to expel the fetus herself and this was after an overdose attempt per Andres. Patient denies abuse. PAST MEDICAL HISTORY: Is denied. She had 1 miscarriage. PAST SURGICAL HISTORY: Patient denies. CURRENT MEDICATIONS: Include Depakote 1000 mg and clonazepam 1 mg twice a day. ALLERGIES: CITALOPRAM, which caused anxiety, OLANZAPINE, which caused worsening psychosis. FAMILY HISTORY: Father has a history of alcoholism, possible undiagnosed bipolar disorder. Mother has a history of alcohol use and breast cancer. Patient denies knowledge of other mental health history in the family. SOCIAL HISTORY: Patient is 1 of 3 children by parents who still reside in [place]; although, she just visited them in the [facility]. She moved to [place] at age 19. 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 She him in 2010 and then approximately in 2010 or 2011 she and Andres Brown . They moved to [place] in 2011 as the patient was having difficulty finding employment. She graduated from [employer] with a graduate degree in neurobiology and psychology in 2010. 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 Andres and Isis relocated back to [place] last October. She was working for [employer] and was fired in January. She was receiving unemployment benefits from [employer]. SUBSTANCE ABUSE HISTORY: Isis reports starting smoking marijuana at 18 years old. She reports smoking "as much as I can" but has limited access. She reports trying mushrooms once and cocaine once. She has a history of alcohol use disorder. She reports that this is in control at this time. She only drinks socially less than once in month and usually just a pint of beer at a time. LEGAL HISTORY: She had a DUI in 2011 while in [place]. She was charged with assault due to spitting on a nurse, but this was dismissed. REVIEW OF SYSTEMS: The patient reports feeling alert. She denies shortness of breath, heat or cold intolerance, chest pain or abdominal pain. She denies neurological symptoms. She denies fevers or changes in weight. PHYSICAL EXAMINATION GENERAL APPEARANCE: Well-appearing, well-nourished sitting on a couch comfortably. VITAL SIGNS: On 11/01/18 at 11:48, temperature was 98.7, pulse 52, respiration 16, O2 sat on room air 98, blood pressure 108/64. HEENT: Eyes, sclerae anicteric. No conjunctival pallor. Mucous membranes moist. NECK: Deferred. RESPIRATORY: No signs of respiratory distress. CARDIOVASCULAR: Appears well perfused. Pulses are normal. ABDOMEN: Deferred. MUSCULOSKELETAL: Moving all 4 extremities without obvious discomfort. NEUROLOGICAL: Awake and alert. Mentation is normal. Speech is fluent and appropriate. SKIN: Warm, dry. No obvious rash. PSYCHIATRIC: Appears anxious. LABORATORY DATA: Most are within normal limits. Exceptions include MCH high at 32, glucose high at 102, AST low at 12s. Urine has many positives including protein at 1+, ketones 1+, blood 1+, urobilinogen positive, trace leukocyte esterase, white blood cells 1+, squamous epithelial cells present, urine bacteria 1+, urine yeast present. Toxicology screen includes positive for cannabinoids, but no other drugs of abuse and her valproic acid level is 90. MENTAL STATUS EXAMINATION: Isis is a woman who is 5 feet 5 inches and weighs 130 pounds. She has long brown hair. She sits very still. She appears to be extremely reflective. She is calm and cooperative. Her speech is of a slightly slower than normal rate. Her tone and volume are soft. She is dysthymic. Her affect is constricted. Her thought processes are normal. She is free from delusions. She is not homicidal. She is passively suicidal at this time and seems hopeless. She is not experiencing auditory or visual hallucinations. Her insight is good. Her judgment is fair to poor. She is alert and oriented x4. DIAGNOSES: Bipolar disorder type 1 with psychotic features. Current episode mixed. IMPRESSION: Isis is a 33-year-old woman who comes to the hospital via ambulance following her leaving the home without money or plan in order to escape her and taking care of him and she what she calls her "responsibility." PLAN: The patient is admitted to the adult behavioral health unit and placed on q. 15 minute checks for her own safety. She is encouraged to participate in supportive milieu, individual, and group therapies. Estimated length of stay is 5 to 7 days. We will titrate medications including Latuda to efficacy and monitor her mood and though content. Discharge planning will include family involvement and outpatient providers. JENNIFER FARR, SKY [id number]/[facility] #: [id number] [facility] CENTERValorie
[2018-10-22] MEDS ORDERED: Divalproex ER TAB(*) 500 MG PO SCH (21:00)
[2018-10-23 08:27] VITALS: BP 120/62
[2018-10-23 08:27] LABS: HDL Cholesterol 38.4 mg/dL
--- NOTE | 2018-10-23 16:57 | DS ---
CC: Dr. John Santos; Renetta Stewart LCSW, [facility] * DISCHARGE SUMMARY: DATE OF ADMISSION: 10/22/18 DATE OF DISCHARGE: 10/23/18 PROVIDER: Jennifer Farr NP, in Psychiatry. SUPERVISING PHYSICIAN: Dr. Kraig De Anda.* (DICTATED BY JENNIFER FARR NP) DIAGNOSIS: Bipolar 1 disorder, current episode mixed. CONDITION AT THE TIME OF DISCHARGE: Improved, psychiatrically cleared, stable. Isis participated in groups and was social with peers. Her is agreeable to discharge and she entered her 72-hour notice yesterday. She has done well here psychiatrically. Depakote remained at 1000 mg daily and Latuda was started at 40 mg with the agreement to continue upward to 60 or 80 mg. She will be attending [facility]. MENTAL STATUS EXAMINATION: At the time of discharge, Isis is calm, cooperative, and makes good eye contact. She is alert and oriented x4. Her grooming is good. Her speech pace is normal. Her thought processes are logical. She is not psychotic or delusional. She denies AH, VH, SI, and HI. Her insight is fair. Her judgment is good. She is willing to follow up and she is urged to see a therapist. DISCHARGE INSTRUCTIONS TO THE PATIENT: A. Medications: 1. Depakote ER 1000 mg at bedtime. 2. Hydroxyzine 50 mg p.o. q.8 hours p.r.n. for anxiety. 3. Latuda 40 mg at mealtime, dispensed 10. B. Diet is regular. C. Activities: As tolerated. Isis has declined a referral to the [employer] [facility] at this time. If she decides to access this free service in the future, she can contact the quitline toll-free at [phone]. There are no studies pending at the time of discharge. D. Followup care: Isis has appointments at [facility] with Dr. Santos on 10/24/18 at 2 p.m. and with Ketty Stewart on 10/30/18 at 1 p.m. E. Disposition: She is being discharged home to be with her . F. Substance abuse followup is not indicated. HOSPITAL COURSE: Part A: Chief complaint: "I keep running away from my ." The patient is a 33-year-old , with a history of bipolar, disorder with psychotic features, who arrives, brought in by ambulance, and is here on a voluntary status after "running away" from her home after her got a concussion and she was supposed to be taking care of him. Isis reports having been diagnosed with bipolar disorder with psychotic features. She states she keeps running away from her even after he got a concussion and she was supposed to take care of him by making a meal. Apparently, her has a history of seizures and another disorder and he is disabled. His name is Andres. She states that over the last 8 years she estimates she has run away 1000 times or more. She wants to leave the relationship in some regard, but also feels as though she has responsibilities to stay in the relationship. She states when she runs away she goes out and buys cigarettes or tries to bum them from people. She is trying very hard to make sense of what she is doing that is leaving. She very logically states "I have no money, I have no friends , my is the only friend I have left." Nevertheless, when she visited her parents in [facility] about 2 weeks ago, she was having suicidal ideation and was sent to the hospital. Her is worried about her safety and his own safety. She states she wants to get better and she wants to stop running away. She was started on Lamictal and Risperdal in the past. She stopped Risperdal because it gave her tics and she stopped Lamictal because she had a blistering rash on her thighs and believes that she was allergic to it and so stopped it. She is interested in trying new medication, although she is very concerned about side effects and reactions that she does not like. She was reassured that she could stop medications that she did not like at anytime and we could discuss future plans. At this point, she seems depressed. Her energy is low. She seems to have difficulty concentrating. She chastises herself with some frequency. She sits quite still, seems to have some psychomotor retardation, has suicidal ideation. Interest is minimal. Part B: Psychiatric treatment was rendered. Isis was admitted to the adult behavioral unit and placed on 15-minute checks for safety. Isis did okay on the unit. She went to some groups and interacted with some peers. She tolerated the medication change, the addition of Latuda, although it was for only 1 night , so it is unclear how well she will tolerate it in the long run. Isis will be returning to her and will likely be caring for him by making him meals, etc. She does have concerns that she is running away and she does not always understand why. These are concerns that are shared by staff here at the hospital as their relationship does not seem to be a healthy one. sIis was originally on Risperdal. That was stopped. I started her on Latuda. Therefore, it should be noted that her hemoglobin A1c is 5.0. Her triglycerides are 110, cholesterol is 135, LDL cholesterol is 75, and HDL cholesterol is 38.4. It should be noted that her TSH is 3.13. Isis was only here for a day. We did not meet with her . Apparently, he has not left his bed since before she left. Her reasoning for putting in a 72- hour notice was that she is no longer suicidal and she needs to take care of her . There were no consults entered for Isis. She is improved. She no longer has suicidal ideation. She seems brighter and more able to concentrate on the conversation that we are having, less distractible. She is future-oriented and is prepared to make different choices in the immediate future. JENNIFER FARR NP [id number]/[facility] #: [id number] WANDA
== END 2018-10-23 11:15 | disposition home or self-care (01) | DRG 753 ==
LOC: ED 22:31 → BSU 10-22 08:58
PROVIDERS: ADMIT Psychiatry & Neurology Psychiatry; ATTEND Psychiatry & Neurology Psychiatry
DX: F31.60 Bipolar disorder, current episode mixed, unspecified (principal); R45.851 Suicidal ideations; F17.210 Nicotine dependence, cigarettes, uncomplicated; Z88.8 Allergy status to other drugs, medicaments and biological substances; Z81.1 Family history of alcohol abuse and dependence; Z80.3 Family history of malignant neoplasm of breast; Z81.8 Family history of other mental and behavioral disorders; Z72.89 Other problems related to lifestyle; Z91.5 Personal history of self-harm; Z56.0 Unemployment, unspecified
CPT/HCPCS: 36415; 80053; 80061; 80164; 80178; 80307; 80320; 80329; 81003; 81015; 83036; 84443; 84702; 85025; 87086; 99222; 99238; 99284; A9270-GY; G0480

== ENCOUNTER 2018-11-02 14:42 | Emergency (ER) | payer OTHER ==
--- NOTE | 2018-11-02 16:04 | ED ---
Neurological HPI - HPI Summary HPI Summary: This patient is a 33 year old F presenting to ED with a chief complaint of subjective seizure-like activity today since stopping her Depakote for bipolar two weeks ago. Patient reports light sensitivity, sensations in the neck, [place], diaphoresis, tiredness. Per , patient laid herself down and then passed out. Patient took Klonopin 2mg at [address] [employer]. The patient rates the pain 0/10 in severity. Symptoms aggravated by nothing. Symptoms alleviated by nothing. PMHx of seizures, bipolar. - History of Current Complaint Chief Complaint: EDSeizure Stated Complaint: SEIZURES PER PT Time Seen by Provider: 11/02/18 15:18 Hx Obtained From: Patient, Family/Audio Director Onset/Duration: Sudden Onset, Started hours ago Onset Severity: Mild Current Severity: Mild Seizure Severity: Mild Pain Intensity: 0 Pain Scale Used: 0-10 Numeric Aggravating: Nothing Alleviating: Nothing Associated Signs and Symptoms: Positive: Headache, Loss of Consciousness, Seizure, Neck Pain/Stiffness - Additional Pertinent History Primary Care Physician: LILLIAM - Allergy/Home Medications Allergies/Adverse Reactions: Allergies Allergy/AdvReac Type Severity Reaction Status Date / Time citalopram [From Celexa] Allergy Anxiety Verified 11/02/18 14:51 divalproex sodium Allergy See Comment Verified 11/02/18 14:51 [From Depakote] lamotrigine [From Lamictal] Allergy Rash Verified 11/02/18 14:51 olanzapine [From Zyprexa] Allergy See Comment Verified 11/02/18 14:51 risperidone [From Risperdal] Allergy Rash Verified 11/02/18 14:51 PMH/Surg Hx/FS Hx/Imm Hx Endocrine/Hematology History: Denies: Hx Diabetes Cardiovascular History: Denies: Hx Hypertension Sensory History: Denies: Hx Contacts or Glasses, Hx Legally Blind, Hx Deafness, Hx Hearing Aid Opthamlomology History: Denies: Hx Contacts or Glasses, Hx Legally Blind Neurological History: Reports: Hx Seizures Psychiatric History: Reports: Hx Depression, Hx Inpatient Treatment, Hx Community Mental Health Tx, Hx Bipolar Disorder, Hx Suicide Attempt, Hx of Violent Episodes Against Others Denies: Hx Eating Disorder Infectious Disease History: No Infectious Disease History: Denies: Traveled Outside the [place] in Last 30 Days - Family History Known Family History: Positive: Other - breast carcinoma mother Negative: Hypertension - Social History Alcohol Use: None Hx Substance Use: Yes Substance Use Type: Reports: Marijuana Hx Tobacco Use: No Smoking Status (MU): Current Every Day Smoker Type: Cigarettes Review of Systems Positive: Skin Diaphoresis Positive: Photophobia Musculoskeletal: Other - "sensations" in neck Neurological: Other - tiredness Positive: Headache All Other Systems Reviewed And Are Negative: Yes Physical Exam - Summary Physical Exam Summary: GENERAL: Patient is a well-developed and nourished F who is lying comfortable in the stretcher. Patient is not in any acute respiratory distress. HEAD AND FACE: Normocephalic EYES: PERRLA, EOMI x 2. EARS: Hearing grossly intact. MOUTH: Oropharynx within normal limits. NECK: Supple, trachea is midline, no adenopathy, no JVD, no carotid bruit. CHEST: Symmetric, no tenderness at palpation LUNGS: Clear to auscultation bilaterally. No wheezing or crackles. CVS: Regular rate and rhythm, S1 and S2 present, no murmurs or gallops appreciated. ABDOMEN: Soft, non-tender. Bowel sounds are normal. No abnormal abdominal pulsations. EXTREMITIES: Full ROM in all major joints, no edema, no cyanosis or clubbing. NEURO: Alert and oriented x 3. No acute neurological deficits. Speech is normal and follows commands. SKIN: Dry and warm Triage Information Reviewed: Yes Vital Signs On Initial Exam: Initial Vitals Temp Pulse Resp BP Pulse Ox 97.8 F 66 16 117/66 97 11/02/18 14:47 11/02/18 14:47 11/02/18 14:47 11/02/18 14:47 11/02/18 14:47 Vital Signs Reviewed: Yes Diagnostics - Vital Signs Vital Signs Temp Pulse Resp BP Pulse Ox 11/02/18 14:47 97.8 F 66 16 117/66 97 - Laboratory Result Diagrams: 11/02/18 15:58 11/02/18 15:58 Lab Statement: Any lab studies that have been ordered have been reviewed, and results considered in the medical decision making process. - EKG 1629 Cardiac Rate: Bradycardia - 41 BPM EKG Rhythm: Sinus Bradycardia Summary of EKG Findings: Sinus bradycardia at 41 BPM. Re-Evaluation - Re-Evaluation First Eval Re-Evaluation Time: 18:51 Comment: Discussed results with patient. Patient will be discharged home with dx of seizure-like activity and a referral to a neurologist. Patient understands and agrees with this plan. Course/Dx - Course Course Of Treatment: This patient is a 33 year old F presenting to ED with a chief complaint of subjective seizure-like activity today since stopping her Depakote for bipolar two weeks ago. Blood work obtained. EKG at 1629 revealed sinus bradycardia at 41 BPM. I discussed results with patient, and she reports feeling better. She is hemodynamically stable and safe for discharge. Strict return precautions given and she will otherwise follow up with her PCP and neurology. - Diagnoses Provider Diagnoses: Seizure-like activity Discharge - Sign-Out/Discharge Documenting (check all that apply): Patient Departure - Discharge Patient Received Moderate/Deep Sedation with Procedure: No - Discharge Plan Condition: Stable Disposition: HOME Patient Education Materials: Epilepsy (ED) Referrals: Neo Cabrera MD [Medical Doctor] - 3 Days [facility] [Outside] - 3 Days Additional Instructions: Follow up with your [facility] care connections and Dr. Cabrera (neurologist) in 1-3 days. RETURN TO THE EMERGENCY DEPARTMENT FOR CHANGING OR WORSENING SYMPTOMS. - Billing Disposition and Condition Condition: STABLE Disposition: Home - Attestation Statements Document Initiated by Scribe: Yes Documenting Scribe: Jorge Luis Morrison Provider For Whom Sami is Documenting (Include Credential): Checo Mehta MD Scribe Attestation: I, Jorge Luis Morrison, scribed for Checo Mehta MD on 11/03/18 at 1048. Scribe Documentation Reviewed: Yes Provider Attestation: The documentation as recorded by the Jorge Luis santos accurately reflects the service I personally performed and the decisions made by me, Checo Mehta MD Status of Scribe Document: Viewed
[2018-11-02 16:05] LABS: ABS Eosinophils 0.1 10^3/ul (0-0.6); ABS Lymphocytes 2.4 10^3/ul (1.0-4.8); ABS Monocytes 0.5 10^3/ul (0-0.8); ABS Neutrophils 4.8 10^3/ul (1.5-7.7); Eosinophil % 0.9 %; Hematocrit 40 % (35-47); Hemoglobin 13.5 g/dL (12.0-16.0); Lymphocyte % 30.6 %; Mean Corpuscular HGB Conc 34 g/dL (31-36); Mean Corpuscular Hemoglobin 32 pg (27-31); Mean Corpuscular Volume 94 fL (80-97); Mean Platelet Volume 7.7 fL (7.4-10.4); Platelet Count 190 10^3/uL (150-450); Red Blood Count 4.27 10^6 /uL (3.70-4.87); Red Cell Distribution Width 14 % (10-15); White Blood Count 7.9 10^3/uL (3.5-10.8)
[2018-11-02 16:25] LABS: ALT 12 U/L (7-52); AST 15 U/L (13-39); Albumin/Globulin Ratio 1.6 (1-3); Alkaline Phosphatase 73 U/L (34-104); Anion Gap 7 mmol/L (2-11); BUN/Creatinine Ratio 11.4 (8-20); Blood Urea Nitrogen 10 mg/dL (6-24); C Reactive Protein 2.07 mg/L (<8.01); CO2 Carbon Dioxide 25 mmol/L (22-32); Calcium 9.4 mg/dL (8.6-10.3); Chloride 109 mmol/L (101-111); EGFR African American 89.5 (>60); Globulin 2.5 g/dL (2-4); Glucose 90 mg/dL (70-100); Potassium 4.1 mmol/L (3.5-5.0); Sodium 141 mmol/L (135-145); Total Protein 6.5 g/dL (6.4-8.9)
[2018-11-02 16:31] LABS: HCG Pregnancy < 0.60 mIU/mL
[2018-11-02 19:02] VITALS: BP 105/57
== END 2018-11-02 19:01 | disposition home or self-care (01) ==
LOC: ED 14:42
DX: R51 Headache (principal); R55 Syncope and collapse; R56.9 Unspecified convulsions; F17.210 Nicotine dependence, cigarettes, uncomplicated
CPT/HCPCS: 36415; 80053; 83605; 83690; 84484; 84702; 85025; 86140; 93005; 99282

== ENCOUNTER 2018-11-04 13:35 | Observation (INO) | payer OTHER ==
--- NOTE | 2018-11-04 16:31 | ED ---
Neurological HPI - HPI Summary HPI Summary: This pt is a 33 y/o female presenting to [facility] c/o absence seizure today. She reports she went off Depakote 2 weeks ago due to Parkinsonian side effects. Today she notes during her absence seizure she "blanked out" for 30 seconds to 1 minute but had not noticed that she had. Her alerted the patient she had an absence seizure. Additionally states that when she has an absence seizure she has diaphoresis that has a particular smell to it. Pt feels fatigued currently, which she notes is normal after her seizures. Denies any other symptoms, fever, chills, dysuria, chest pain, SOB. Pt was in the ED 2 days ago for the same complaint, states she was not given any medications but had a full work up. She called a neurologist today but was told they didn't have appointments until April and was advised to come to the ED. Pt reports her mother had a strong somnolence reaction to Keppra. Pt also states she gets aggressive when taking Keppra. 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 Pt notes she is only on Klonopin. She denies SI or HI. - History of Current Complaint Chief Complaint: EDSeizure Stated Complaint: ABSENT SEISURES PER PT Time Seen by Provider: 11/04/18 16:20 Hx Obtained From: Patient Onset/Duration: Sudden Onset, Still Present Timing: Sudden Onset Onset Severity: Mild Current Severity: None Number of Seizures: 1 - witnessed by Pain Intensity: 0 - denies any pain Pain Scale Used: 0-10 Numeric Character: Other: - blank stare Aggravating: Nothing Alleviating: Nothing Associated Signs and Symptoms: Negative: Loss of Consciousness, Fever, Chest Pain, Shortness of Breath Related Hx: Medication Non-Comliant - Additional Pertinent History Primary Care Physician: [id number] - Allergy/Home Medications Allergies/Adverse Reactions: Allergies Allergy/AdvReac Type Severity Reaction Status Date / Time citalopram [From Celexa] Allergy Anxiety Verified 11/02/18 14:51 divalproex sodium Allergy See Comment Verified 11/02/18 14:51 [From Depakote] lamotrigine [From Lamictal] Allergy Rash Verified 11/02/18 14:51 levetiracetam [From Keppra] Allergy Agitation Verified 11/04/18 17:31 olanzapine [From Zyprexa] Allergy See Comment Verified 11/02/18 14:51 risperidone [From Risperdal] Allergy Rash Verified 11/02/18 14:51 Home Medications: Home Medications clonazePAM [Klonopin] 1 mg PO BID 11/04/18 [History Confirmed 11/04/18] PMH/Surg Hx/FS Hx/Imm Hx Endocrine/Hematology History: Denies: Hx Diabetes Cardiovascular History: Denies: Hx Hypertension Sensory History: Denies: Hx Contacts or Glasses, Hx Legally Blind, Hx Deafness, Hx Hearing Aid Opthamlomology History: Denies: Hx Contacts or Glasses, Hx Legally Blind Neurological History: Reports: Hx Seizures Psychiatric History: Reports: Hx Depression, Hx Inpatient Treatment, Hx Community Mental Health Tx, Hx Bipolar Disorder, Hx Suicide Attempt, Hx of Violent Episodes Against Others Denies: Hx Eating Disorder Infectious Disease History: No Infectious Disease History: Denies: Traveled Outside the [place] in Last 30 Days - Family History Known Family History: Positive: Other - breast carcinoma mother Negative: Hypertension - Social History Alcohol Use: None Hx Substance Use: Yes Substance Use Type: Reports: Marijuana Hx Tobacco Use: No Smoking Status (MU): Current Every Day Smoker Type: Cigarettes Review of Systems Positive: Fatigue, Skin Diaphoresis. Negative: Fever, Chills Negative: Chest Pain Negative: Shortness Of Breath Negative: dysuria Neurological: Other - POSITIVE: absence seizure Negative: Other - NEGATIVE: SI or HI All Other Systems Reviewed And Are Negative: Yes Physical Exam - Summary Physical Exam Summary: Constitutional: Well-developed, Well-nourished, Alert. (-) Distressed Skin: Warm, Dry HENT: Normocephalic; Atraumatic Eyes: Conjunctiva normal Neck: Musculoskeletal ROM normal neck. (-) JVD, (-) Stridor, (-) Tracheal deviation Cardio: Rhythm regular, rate normal, Heart sounds normal; Intact distal pulses; The pedal pulses are 2+ and symmetric. Radial pulses are 2+ and symmetric. (-) Murmur Pulmonary/Chest wall: Effort normal. (-) Respiratory distress, (-) Wheezes, (-) Rales Abd: Soft, (-) tenderness, (-) Distension, (-) Guarding, (-) Rebound Musculoskeletal: (-) Edema Lymph: (-) Cervical adenopathy Neuro: Alert, Oriented x3 Psych: Mood and affect Normal Triage Information Reviewed: Yes Vital Signs On Initial Exam: Initial Vitals Temp Pulse Resp BP Pulse Ox 97.5 F 60 18 106/61 99 11/04/18 13:39 11/04/18 13:39 11/04/18 13:39 11/04/18 13:39 11/04/18 13:39 Vital Signs Reviewed: Yes Diagnostics - Vital Signs Vital Signs Temp Pulse Resp BP Pulse Ox 11/04/18 15:29 97.8 F 50 18 91/54 98 11/04/18 13:39 97.5 F 60 18 106/61 99 - Laboratory Result Diagrams: 11/04/18 17:38 11/04/18 17:38 Lab Statement: Any lab studies that have been ordered have been reviewed, and results considered in the medical decision making process. Re-Evaluation - Re-Evaluation First Eval Re-Evaluation Time: 17:33 Comment: Discussed admission plan. Pt understands and agrees. Course/Dx - Course Assessment/Plan: Pt is a 33 y/o female [facility] c/o absence seizure today. She reports she went off Depakote 2 weeks ago due to side effects. Today she notes during her absence seizure she "blanked out" for 30 seconds to 1 minute but had not noticed that she had. Her alerted the patient she had an absence seizure. Pt had recent blood work done 2 days ago while in the ED for the same complaint. Physical exam is unremarkable. Dr. Forrester, neurologist, recommends admission. Discussed with Dr. Kuhn, hospitalist, who accepts the pt for admission. - Diagnoses Provider Diagnoses: Seizures - Physician Notifications Discussed Care Of Patient With: Eligio Forrester Time Discussed With Above Provider: 17:20 Instructed by Provider To: Other - Dr. Forrester, neurologist, recommends admission. [17:32] Discussed with Dr. Kuhn, hospitalist, who accepts the pt for admission. Discharge - Sign-Out/Discharge Documenting (check all that apply): Patient Departure - Admit to [facility] Patient Received Moderate/Deep Sedation with Procedure: No - Discharge Plan Condition: Stable Disposition: ADMITTED TO [facility] Referrals: No Primary Care Phys,NOPCP [Primary Care Provider] - - Billing Disposition and Condition Condition: STABLE Disposition: Admitted to [facility] - Attestation Statements Document Initiated by Nicolasibmiguel: Yes Documenting Scribe: Lana Sher Provider For Whom Sami is Documenting (Include Credential): Laila Avalos MD Scribe Attestation: ILana, scribed for Laila Kaur MD on 11/04/18 at 1840. Scribe Documentation Reviewed: Yes Provider Attestation: The documentation as recorded by the Lana santos accurately reflects the service I personally performed and the decisions made by me, Laila Kaur MD Status of Scribe Document: Viewed
[2018-11-04 17:47] LABS: ABS Eosinophils 0.1 10^3/ul (0-0.6); ABS Lymphocytes 2.5 10^3/ul (1.0-4.8); ABS Monocytes 0.5 10^3/ul (0-0.8); ABS Neutrophils 4.6 10^3/ul (1.5-7.7); Eosinophil % 1.4 %; Hematocrit 46 % (35-47); Hemoglobin 15.4 g/dL (12.0-16.0); Lymphocyte % 32.4 %; Mean Corpuscular HGB Conc 34 g/dL (31-36); Mean Corpuscular Hemoglobin 32 pg (27-31); Mean Corpuscular Volume 94 fL (80-97); Mean Platelet Volume 7.9 fL (7.4-10.4); Platelet Count 205 10^3/uL (150-450); Red Blood Count 4.85 10^6 /uL (3.70-4.87); Red Cell Distribution Width 15 % (10-15); White Blood Count 7.7 10^3/uL (3.5-10.8)
[2018-11-04 18:06] LABS: ALT 11 U/L (7-52); AST 15 U/L (13-39); Albumin 4.4 g/dL (3.2-5.2); Albumin/Globulin Ratio 1.8 (1-3); Alkaline Phosphatase 84 U/L (34-104); Anion Gap 8 mmol/L (2-11); BUN/Creatinine Ratio 10.2 (8-20); Blood Urea Nitrogen 9 mg/dL (6-24); CO2 Carbon Dioxide 25 mmol/L (22-32); Calcium 9.3 mg/dL (8.6-10.3); Chloride 108 mmol/L (101-111); EGFR African American 89.5 (>60); Globulin 2.5 g/dL (2-4); Glucose 94 mg/dL (70-100); Potassium 4.3 mmol/L (3.5-5.0); Sodium 141 mmol/L (135-145); Total Protein 6.9 g/dL (6.4-8.9)
[2018-11-04 18:20] LABS: INR 1.05 (0.82-1.09)
[2018-11-04] MEDS ORDERED: hydrOXYzine HCL TAB* 50 MG PO PRN (18:54)
[2018-11-04] MEDS: clonazePAM TAB(*) 1 MG PO SCH (21:36)
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
[2018-11-05] MEDS: clonazePAM TAB(*) 1 MG PO SCH (09:13)
[2018-11-05 15:34] LABS: TSH (Thyroid Stimulating Horm) 1.91 mcIU/mL (0.34-5.60)
[2018-11-05 16:47] VITALS: BP 87/54
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
[2018-11-05 17:12] LABS: Urine Appearance Cloudy; Urine Bilirubin Negative (Negative); Urine Blood Negative (Negative); Urine Color Yellow; Urine Glucose Negative (Negative); Urine Ketones Negative (Negative); Urine Nitrite Negative (Negative); Urine Protein Negative (Negative); Urine Specific Gravity 1.005 (1.010-1.030); Urine Urobilinogen Negative (Negative)
[2018-11-05] MEDS ORDERED: Lurasidone(*) 40 MG TAB PO SCH (18:54)
--- NOTE | 2018-11-05 21:27 | EEG ---
ELECTROENCEPHALOGRAPHY REPORT: DATE OF STUDY: 11/05/18 - ROOM #[id number] DATE READ: 11/05/18. ORDERED BY: Dr. Leonel Erazo. INDICATION: Ms. Isis Rivers has a history of psychogenic nonepileptic activity, who presents with increase in staring spells. This EEG was obtained to evaluate for epileptiform abnormalities or electrographic seizures. MEDICATIONS: Klonopin and Atarax. DURATION: [id number]. Please note that this is an extended EEG recording greater than 1 hour. CLINICAL STATE: Awake and drowsiness. REPORT: The waking background showed appropriate organization with clearly defined anterior-posterior voltage and frequency gradients. There was a well- defined posterior dominant rhythm of 10 Hz, which was symmetrical and showed normal reactivity. Anteriorly, there was an expected pattern of lower voltage, irregular, mixed faster frequency. Attenuation of the occipital rhythm accompanied drowsiness. There was small sharp spike wave in the left temporal region that was consistent with benign sharp waves of drowsiness. This is a normal variant. There were no epileptiform abnormalities or electrographic seizures. Photic stimulation and hyperventilation were not performed. Single electrode EKG showed normal sinus rhythm. Throughout the recording, there were no electrographic seizures. CLINICAL IMPRESSION: This is a normal extended awake and drowsy EEG with no evidence of epileptiform abnormalities or electrographic seizures. The patient did not have any of her clinical seizure like activity or episodes throughout this recording. [id number]/[facility] #: [id number] [facility] MANHATTANValorie
--- NOTE | 2018-11-06 13:13 | DS ---
CC: Dr. Freya Bradley; Dr. Cabrera; Dr. Santos at [facility] DISCHARGE SUMMARY: DATE OF ADMISSION: 11/04/18 DATE OF DISCHARGE: 11/05/18 PRIMARY DIAGNOSIS: Nonepileptic seizures. SECONDARY DIAGNOSIS: Bipolar disorder. MEDICATIONS ON DISCHARGE: 1. Clonazepam 1 mg p.o. b.i.d., prescribed through Mental Health. 2. Atarax 50 mg p.o. q.6 hours p.r.n. anxiety. HOSPITAL COURSE: Please see dictated history and physical for full initial evaluation. In brief, th is patient is a 33-year-old woman who recently moved back to [place], in the last 6 months, who has peterson d a stated history of seizure disorder for 8 years. She was taken off Depakote a few weeks ago due t o elevated Depakote level and side effects. She has a long list of other side effects from other ant iconvulsants and psychiatric medications. The patient was admitted due to reporting 5 seizures on day prior to admission. She states the seizures are triggered by heat and lack of sleep and hot we ather. The patient had a consultation with Dr. Forrester of Neurology, who thoroughly evaluated her hist ory and obtained further history, including the fact that she had 48 hours of EEG monitoring at [facility] 8 years ago and was told that these seizures are nonepileptic. The patient did have a 3 hours EEG at [facility] on the day of discharge, which showed no seizure activity or abnormalities. The patient accepted the explanation that these are nonepileptic seizures. The patient, on presentation, also was reported to have been under the guardianship of her . On further questioning, it appears that the patient has executed a medial power of trade mark attorney for her h usband in order for him to get access to her medical records and be part of the discussion for her he althcare, but not to make decisions for her, every time. The hospital computer does contain a [facility] medical power of trade mark attorney, mainly has to do with financial issues. There is also a [facility] medical power of trade mark attorney in the chart. DISPOSITION: To home. FOLLOWUP: 1. She should follow up with her primary care doctor, Dr. Bradley, within the next week. 2. She also should be seeing Neurology within a month if possible and should be seeing Dr. Santos, psychiatrist, within the next 2 weeks. STATUS: Observation. CONDITION: Good. DIET: Regular. ACTIVITY: As tolerated. [id number]/[facility] #: [id number]
== END 2018-11-05 17:15 | disposition home or self-care (01) ==
LOC: ED 13:35 → MED 19:38
PROVIDERS: ADMIT Internal Medicine; ATTEND Internal Medicine
DX: G40.909 Epilepsy, unspecified, not intractable, without status epilepticus (principal); F31.9 Bipolar disorder, unspecified; Z79.899 Other long term (current) drug therapy; F17.210 Nicotine dependence, cigarettes, uncomplicated; Z91.5 Personal history of self-harm; R55 Syncope and collapse
CPT/HCPCS: 36415; 80053; 80164; 81003; 82607; 83605; 83735; 84443; 85025; 85610; 95813; 99284; A9270-GY; G0378

== ENCOUNTER 2019-04-08 19:56 | Inpatient (IN) | payer OTHER ==
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
[2019-04-08] MEDS ORDERED: NS 0.9% 1000 ML** 1,000 ML IV ONE ×2 (20:05→21:50)
[2019-04-08 20:31] LABS: ABS Eosinophils 0.1 10^3/ul (0-0.6); ABS Lymphocytes 1.6 10^3/ul (1.0-4.8); ABS Monocytes 0.6 10^3/ul (0-0.8); ABS Neutrophils 10.6 10^3/ul (1.5-7.7); Eosinophil % 0.4 %; Hematocrit 39 % (35-47); Hemoglobin 12.8 g/dL (12.0-16.0); Lymphocyte % 12.5 %; Mean Corpuscular HGB Conc 33 g/dL (31-36); Mean Corpuscular Hemoglobin 31 pg (27-31); Mean Corpuscular Volume 95 fL (80-97); Platelet Count 184 10^3/uL (150-450); Red Cell Distribution Width 14 % (10-15); White Blood Count 12.9 10^3/uL (3.5-10.8)
[2019-04-08 20:46] LABS: Albumin 3.4 g/dL (3.2-5.2); Anion Gap 9 mmol/L (2-11); CO2 Carbon Dioxide 20 mmol/L (22-32); Calcium 8.2 mg/dL (8.6-10.3); Chloride 109 mmol/L (101-111); Potassium 3.9 mmol/L (3.5-5.0); Sodium 138 mmol/L (135-145)
[2019-04-08 20:52] LABS: ALT 10 U/L (7-52); AST 15 U/L (13-39); Albumin/Globulin Ratio 1.5 (1-3); Alkaline Phosphatase 79 U/L (34-104); BUN/Creatinine Ratio 11.7 (8-20); Blood Urea Nitrogen 13 mg/dL (6-24); EGFR African American 68.5 (>60); EGFR Non-African American 56.6 (>60); Globulin 2.2 g/dL (2-4); Glucose 224 mg/dL (70-100); HCG Pregnancy < 0.60 mIU/mL; Total Protein 5.6 g/dL (6.4-8.9)
[2019-04-08 21:07] LABS: Acetaminophen < 15 mcg/mL; Alcohol < 10 mg/dL (<10); Salicylate < 2.50 mg/dL (<30)
[2019-04-09] MEDS ORDERED: Naloxone* 0.4 MG/ML 1 ML VIAL IV PUSH ONE (00:48)
[2019-04-09] MEDS: clonazePAM TAB(*) 1 MG PO SCH ×2 (02:14→11:33)
--- NOTE | 2019-04-09 07:16 | ED ---
Progress - Progress Note Progress Note: This patient was signed out from Dr. Abdi at shift change at 0700 on 04/09/19 , pending disposition, awaiting mental health evaluation. The patient is unresponsive and will be admitted with Dx of overdose. Re-Evaluation - Re-Evaluation First Eval Re-Evaluation Time: 07:24 Comment: Checked on pt status. Pt is unresponsive. Second Eval Re-Evaluation Time: 00:45 Comment: O2 sat 89 per nurse. will order Narcan Third Eval Re-Evaluation Time: 00:50 Comment: patient will need to be observed for 6 hours after receiving Narcan Course/Dx - Course Course Of Treatment: This patient was signed out from Dr. Abdi at shift change at 0700 on 04/09/19, pending disposition, awaiting mental health evaluation. The patient is not waking up and will be admitted with Dx of overdose. - Diagnoses Provider Diagnoses: Intentional drug overdose - Provider Notifications Discussed Care Of Patient With: Michele Rob Time Discussed With Above Provider: 07:33 Instructed by Provider To: Other - Discussed care with Dr. Rob, who accepts pt for admission. Discharge ED - Sign-Out/Discharge Documenting (check all that apply): Patient Departure - Admit - Discharge Plan Condition: Stable Disposition: ADMITTED TO [facility] Referrals: No Primary Care Phys,NOPCP [Primary Care Provider] - - Billing Disposition and Condition Condition: STABLE Disposition: Admitted to [facility] - Attestation Statements Document Initiated by Nicolasibe: Yes Documenting Scribe: Karina Luong Provider For Whom Scribe is Documenting (Include Credential): Wicho Bustillo MD Scribe Attestation: Karina Eduardo, scribed for Wicho Bustillo MD on 04/09/19 at 1503. Scribe Documentation Reviewed: Yes Provider Attestation: The documentation as recorded by the Karina santos accurately reflects the service I personally performed and the decisions made by me, Wicho Bustillo MD Status of Scribe Document: Viewed
[2019-04-09] MEDS ORDERED: NS 0.9% 1000 ML** 1,000 ML IV ONE (07:48)
[2019-04-09] MEDS ORDERED: Naloxone* 2 MG in NS 0.9% 250 ML* 245 ML IV SCH (08:00)
[2019-04-09 09:11] LABS: Urine Appearance Clear; Urine Bilirubin Negative (Negative); Urine Blood 1+ (Negative); Urine Color Yellow; Urine Glucose 1+(50 mg/dL) (Negative); Urine Ketones Negative (Negative); Urine Nitrite Negative (Negative); Urine Protein Negative (Negative); Urine Specific Gravity 1.006 (1.010-1.030); Urine Urobilinogen Negative (Negative)
[2019-04-09 09:23] LABS: Urine Bacteria Absent (Absent); Urine Red Blood Cell Absent (Absent); Urine Squamous Epithelial Cell Present (Absent); Urine White Blood Cell Trace(0-5/hpf) (Absent)
[2019-04-09 09:25] LABS: Urine Benzodiazepine Screen Presumptive Positive (None Detect); Urine Opiates Screen Presumptive Positive (None Detect)
[2019-04-09] MEDS ORDERED: Naloxone* 0.4 MG/ML 10 ML VIAL ONE (10:44)
[2019-04-09] MEDS ORDERED: Naloxone* 0.4 MG/ML 10 ML VIAL IV ONE (10:50)
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
[2019-04-09 12:20] LABS: Albumin 3.2 g/dL (3.2-5.2); Albumin/Globulin Ratio 1.9 (1-3); BUN/Creatinine Ratio 9.6 (8-20); Calcium 7.3 mg/dL (8.6-10.3); EGFR African American 95.8 (>60); EGFR Non-African American 79.2 (>60); Globulin 1.7 g/dL (2-4); Total Bilirubin 0.2 mg/dL (0.2-1.0); Total Protein 4.9 g/dL (6.4-8.9)
[2019-04-09] MEDS: Ondansetron INJ* 2 MG/ML VIAL IV ONE ×2 (13:20→13:25)
[2019-04-09] MEDS: Heparin VIAL(*) 5000 UNITS/ML VIAL (FIVE THOUSAND) SUBCUT SCH ×2 (17:18→22:00)
--- NOTE | 2019-04-09 17:51 | PN ---
Progress Note - Progress Note Date of Service: 04/09/19 Note: Saw Era on bed side with RN. Patient is still very somnolent with slurred and mostly uninteligeable speech. However at one point looked at the sports book writer and said " I know you and dont want to go to [facility] " and then didn't pay attention to whatever I told her. Her vital looks good except for her respiratory rate which is still low ( 10-12 ), the monitor registers 6. She received 2mg Narcan at 11 AM. Plan is to transfer her to [facility] whenever she is totally medically cleared. Medical team please do a Doc:Doc before transferring the patient to [facility].
[2019-04-09] MEDS ORDERED: Naloxone* 0.4 MG/ML 1 ML VIAL IV PUSH PRN (19:51)
[2019-04-09] MEDS ORDERED: Naloxone* 0.4 MG/ML 1 ML VIAL ONE (19:56)
[2019-04-10] MEDS ORDERED: diPHENhydraMINE IV* 50 MG/ML 1 ml VIAL (BENADRYL) ONE (00:30)
[2019-04-10] MEDS: Heparin VIAL(*) 5000 UNITS/ML VIAL (FIVE THOUSAND) SUBCUT SCH ×2 (06:10→14:17)
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
[2019-04-10 08:53] LABS: ABS Eosinophils 0.1 10^3/ul (0-0.6); ABS Lymphocytes 2.9 10^3/ul (1.0-4.8); ABS Monocytes 0.4 10^3/ul (0-0.8); ABS Neutrophils 3.3 10^3/ul (1.5-7.7); Eosinophil % 1.6 %; Hematocrit 34 % (35-47); Hemoglobin 11.4 g/dL (12.0-16.0); Lymphocyte % 42.5 %; Mean Corpuscular HGB Conc 34 g/dL (31-36); Mean Corpuscular Hemoglobin 31 pg (27-31); Mean Corpuscular Volume 92 fL (80-97); Mean Platelet Volume 8.1 fL (7.4-10.4); Nucleated Red Blood Cells % 0.1; Platelet Count 156 10^3/uL (150-450); Red Blood Count 3.64 10^6 /uL (3.70-4.87); Red Cell Distribution Width 14 % (10-15); White Blood Count 6.7 10^3/uL (3.5-10.8)
[2019-04-10] MEDS ORDERED: Influenza VAC *QUAD* 2019-20* 0.5 ML SYRINGE IM ONE (09:00)
[2019-04-10 09:07] LABS: ALT 7 U/L (7-52); AST 10 U/L (13-39); Albumin 3.1 g/dL (3.2-5.2); Albumin/Globulin Ratio 1.6 (1-3); Alkaline Phosphatase 73 U/L (34-104); Anion Gap 2 mmol/L (2-11); BUN/Creatinine Ratio 7.1 (8-20); Blood Urea Nitrogen 5 mg/dL (6-24); CO2 Carbon Dioxide 26 mmol/L (22-32); Calcium 8.1 mg/dL (8.6-10.3); Chloride 108 mmol/L (101-111); EGFR African American 116.6 (>60); EGFR Non-African American 96.4 (>60); Glucose 107 mg/dL (70-100); Potassium 3.5 mmol/L (3.5-5.0); Sodium 136 mmol/L (135-145); Total Protein 5.1 g/dL (6.4-8.9)
[2019-04-10] MEDS ORDERED: diPHENhydraMINE IV* 50 MG/ML 1 ml VIAL (BENADRYL) IV ONE ×2 (12:00)
--- NOTE | 2019-04-10 16:33 | PN ---
Subjective - Subjective Date of Service: 04/10/19 Service Type: 55103 Hosp care 25 min moderate complexity Subjective: Met with Gurvinder who said that she was actually just trying to take a nap so she took these medications to help her become sleepy. When asked if she took just a few to aid with her nap, she stated, "No. I took all that was there." She stated she took only oxymorphone. She says she doesn't take any medications to control bipolar disorder. She had been smoking marijuana. These statements are out of line with what was stated in the emergency department. Gurvinder is vague about many details. Her , Andres, introduced himself to me and was very clear that he had power of health care attorney that Gurvinder had granted him and wanted him to use. He stated that he did not want any medications used. He believed strongly that she gets tardive dyskinesia when taking any antipsychotic and then went on to detail three medications that caused it that were not antipsychotics. Objective - General Observations Appearance: Disheveled Appears Stated Age: No - younger Stature: WNL Posture: Atypical Eye Contact: Intermittent Behavior/Activity: Slowed, Peculiar - Interaction Observations Attitude Towards Examiner: Cooperative, Evasive Stated Mood: Euthymic Affect: Blunted, Restricted Speech Pattern/Tone: Delayed, Slurred, Quiet Volume Thought Process: Coherent, Circumstantial Perception: WNL Thought Content: Self-Deprecatory Hallucination Type: None Delusion Type: None - Cognitive Function Orientation: A&O x 4 Level of Consciousness: Awake, Alert, Appropriate, Drowsy Cognition: WNL Estimated Intelligence: Normal Insight: Difficulty Acknowledging Presence of Psyciatric Problems Judgment Within Normal Limits: No Ability to Make Reasonable Decisions: Serverely Impaired Assessment - Assessment Merits Inpatient Hospitalization: For Immediate Safety Clinical Impression: Gurvinder is a 33-year-old woman who comes to the hospital after a severe overdose of opioids and benzodiazepines also in the setting of smoking marijuana; the overdose was initially told by Gurvinder to be for the purpose of suicide, but she now states it was to take a nap. Plan - Plan Treatment Plan: Name: GURVINDER WALTERS Birthdate: 1985 [id number] 04/10/19 Plan to stabilize Gurvinder in this setting. We will discuss medications, stability, social pressures, and relationship needs. Continued Medication Management: Different Medication Medications: Current Medications Heparin Sodium (Porcine) (Heparin Vial(*)) 5,000 units SUBCUT Q8HR [facility] Last Admin: 04/10/19 14:17 Dose: 5,000 units Naloxone HCl (Narcan*) 0.4 mg IV PUSH Q4H PRN PRN Reason: Keep RR>10 or hypersomnic Last Admin: 04/10/19 00:41 Dose: 0.4 mg
[2019-04-11] MEDS: Heparin VIAL(*) 5000 UNITS/ML VIAL (FIVE THOUSAND) SUBCUT SCH ×2 (00:54→09:35)
[2019-04-11] MEDS ORDERED: Nicotine* 2MG (FRUIT FLAVOR) GUM PO PRN (08:07)
[2019-04-11 08:19] LABS: Cholesterol 96 mg/dL; HDL Cholesterol 28.9 mg/dL; LDL Cholesterol 47 mg/dL; Triglycerides 102 mg/dL
[2019-04-11 08:41] LABS: HCG Pregnancy < 0.60 mIU/mL
[2019-04-11] MEDS ORDERED: Ibuprofen TAB* 400 MG PO PRN (16:40)
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
--- NOTE | 2019-04-13 12:06 | PN ---
Subjective - Subjective Date of Service: 04/13/19 Service Type: 03550 Hosp care 15 min low complexity Subjective: Gurvinder Walters was admitted to the [facility] from the ICU, where she had been treated for an overdose on opiate and benzodiazepine medications. She has now clarified that the overdose was taken with intent to kill herself. She denies currently feeling suicidal nor any suicidal thoughts since entering the hospital aside from feeling "bored to ." Mood is "shitty" today. Reports awakening thinking today was Sunday, and being disappointed to realize that she would be in hospital at least one more day. Reports people here are treating her OK: "yeah, they're fine." Reports she has called her a couple times since she has been here. Reports sleeping poorly due to comings and rafy of roommates. Overall, report is mostly complaints about treatment here. Looking forward to discharge anticipated tomorrow. I have told patient that I do not have written confirmation of that exact plan. She reports having asked that her not be allowed to visit because she did not want to confront him about what she had gone through, and she did not "want his so called words of comfort when he was the direct reason for my attempt." Objective - General Observations Appearance: Disheveled Appears Stated Age: Yes Stature: WNL Posture: WNL Eye Contact: Avoidant Behavior/Activity: WNL - Interaction Observations Attitude Towards Examiner: Cooperative Stated Mood: Dysphoric - "it's cloudy" Affect: Full Speech Pattern/Tone: Clear, Appropriate, Normal Volume Thought Process: Coherent, Goal Directed Perception: WNL Thought Content: Depressive Hallucination Type: None - some when in and out of consciousness in ICU Delusion Type: None - Cognitive Function Orientation: A&O x 4 Level of Consciousness: Awake, Alert, Appropriate Cognition: WNL Estimated Intelligence: Above Normal Insight: Mostly Blames Others for Problems Judgment Within Normal Limits: No Ability to Make Reasonable Decisions: Mildly Impaired - Medication Compliance Cooperative with Inpatient Medication Regimen: No - Group Participation Participates in Group Activities: No Assessment - Assessment Merits Inpatient Hospitalization: For Immediate Safety, For Stabilization, Diagnosis Determination, To Initiate Treatment, For Ongoing Evaluation, For Discharge Planning, Pending Safe DC Plan Inpatient DSM-V Dx: F31.9 Clinical Impression: Gurvinder is a 33-year-old woman who comes to the hospital after a severe overdose of opioids and benzodiazepines also in the setting of smoking marijuana; the overdose was initially told by Gurvinder to be for the purpose of suicide, but she now states it was to take a nap. 04.13.19 Today Gurvinder reports overdose was indeed a suicide attempt in response to some aspect of relationship with , whom she says she does not want to visit her here, and with whom she had been living before hospitalization but no longer wants to live with. Plan - Plan Treatment Plan: Name: GURVINDER WALTERS Birthdate: 1985 [id number] 04/10/19 Plan to stabilize Gurvinder in this setting. We will discuss medications, stability, social pressures, and relationship needs. 04.13.19 Monitor q15m for ongoing assessment and safety. Encourage increased engagement with unit milieu and group therapy utilization. Declines initiating any medications, stating none has ever helped her. Continued Medication Management: Consider Medication Medications: Current Medications Ibuprofen (Motrin Tab*) 400 mg PO Q6H PRN PRN Reason: PAIN - MILD Nicotine Polacrilex (Nicotine Gum*) 2 mg PO Q2H PRN PRN Reason: CRAVING - Discharge Plan Discharge Plan: Outpatient Follow Up Outpatient Program: [facility] - with Dr Santos if available
[2019-04-14 09:23] VITALS: BP 151/59
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
== END 2019-04-14 11:20 | disposition home or self-care (01) | DRG 812 ==
LOC: ED 19:56 → ICU 04-09 09:19 → UNDOADMIN 04-09 09:19 → BSU 04-10 14:02
PROVIDERS: ADMIT Internal Medicine Critical Care Medicine; ATTEND Psychiatry & Neurology Psychiatry
DX: T40.2X2A Poisoning by other opioids, intentional self-harm, initial encounter (principal); N17.9 Acute kidney failure, unspecified; T42.4X2A Poisoning by benzodiazepines, intentional self-harm, initial encounter; F31.9 Bipolar disorder, unspecified; F17.200 Nicotine dependence, unspecified, uncomplicated; Y92.009 Unspecified place in unspecified non-institutional (private) residence as the place of occurrence of the external cause
CPT/HCPCS: 36415; 71045; 80053; 80061; 80164; 80307; 80320; 80329; 81003; 81015; 82803; 83036; 83605; 84702; 85025; 87086; 87641; 90686; 93005; 99222; 99231; 99238; 99285; G0480; J1200; J1644; J2310; J2405

== ENCOUNTER 2019-11-10 10:22 | Inpatient (IN) ==
[2019-11-10] MEDS ORDERED: Senna TAB 8.6 mg TAB PO PRN (14:18)
[2019-11-10] MEDS: Chlorhexidine MOUTHWASH 0.12% 15 ML UDC SWISH SPIT SCH ×2 (18:15→23:03)
[2019-11-10] MEDS ORDERED: Magnesium Hydroxide LIQ 30 ML UDC PO PRN (19:20)
[2019-11-10] MEDS: Bacitracin OINTMENT TUBE TOPICAL SCH (23:10)
[2019-11-11] MEDS: Bacitracin OINTMENT TUBE TOPICAL SCH ×2 (08:36→21:11)
[2019-11-11] MEDS: Enoxaparin 40 MG/0.4 ML SYR SUBCUT SCH (08:36)
[2019-11-11] MEDS: Chlorhexidine MOUTHWASH 0.12% 15 ML UDC SWISH SPIT SCH ×4 (08:36→21:11)
[2019-11-11] MEDS ORDERED: Multivitamins/Minerals TAB PO SCH (09:00)
[2019-11-12 06:20] LABS: ABS Eosinophils 0.1 10^3/ul (0-0.6); ABS Lymphocytes 1.5 10^3/ul (1.0-4.8); ABS Monocytes 0.4 10^3/ul (0-0.8); ABS Neutrophils 4.6 10^3/ul (1.5-7.7); Eosinophil % 2.1 %; Hematocrit 32 % (35-47); Hemoglobin 10.8 g/dL (12.0-16.0); Lymphocyte % 22.2 %; Mean Corpuscular HGB Conc 34 g/dL (31-36); Mean Corpuscular Hemoglobin 31 pg (27-31); Mean Corpuscular Volume 93 fL (80-97); Mean Platelet Volume 7.1 fL (7.4-10.4); Platelet Count 328 10^3/uL (150-450); Red Blood Count 3.42 10^6 /uL (3.70-4.87); Red Cell Distribution Width 15 % (10-15); White Blood Count 6.6 10^3/uL (3.5-10.8)
[2019-11-12 06:29] LABS: Albumin 3.3 g/dL (3.2-5.2); Albumin/Globulin Ratio 1.3 (1-3); BUN/Creatinine Ratio 17.6 (8-20); Calcium 8.3 mg/dL (8.6-10.3); Globulin 2.5 g/dL (2-4); Potassium 3.8 mmol/L (3.5-5.0); Total Bilirubin 0.5 mg/dL (0.2-1.0); Total Protein 5.8 g/dL (6.4-8.9)
[2019-11-12] MEDS: Bacitracin OINTMENT TUBE TOPICAL SCH ×2 (08:19→20:56)
[2019-11-12] MEDS: Chlorhexidine MOUTHWASH 0.12% 15 ML UDC SWISH SPIT SCH ×4 (08:20→20:56)
[2019-11-12] MEDS: Enoxaparin 40 MG/0.4 ML SYR SUBCUT SCH (08:20)
[2019-11-12 13:57] LABS: Hepatitis B Surface Antigen Nonreactive (Nonreactive)
[2019-11-12 14:09] LABS: HIV 4th Generation Nonreactive (Nonreactive)
[2019-11-13] MEDS: Enoxaparin 40 MG/0.4 ML SYR SUBCUT SCH (10:11)
[2019-11-13] MEDS: Bacitracin OINTMENT TUBE TOPICAL SCH ×3 (10:12→21:48)
[2019-11-13] MEDS: Chlorhexidine MOUTHWASH 0.12% 15 ML UDC SWISH SPIT SCH ×6 (10:12→21:49)
[2019-11-14] MEDS: Enoxaparin 40 MG/0.4 ML SYR SUBCUT SCH (10:26)
[2019-11-14] MEDS: Chlorhexidine MOUTHWASH 0.12% 15 ML UDC SWISH SPIT SCH ×4 (10:26→20:12)
[2019-11-14] MEDS: Bacitracin OINTMENT TUBE TOPICAL SCH (10:27)
[2019-11-15] MEDS: Enoxaparin 40 MG/0.4 ML SYR SUBCUT SCH (09:57)
[2019-11-15] MEDS: Chlorhexidine MOUTHWASH 0.12% 15 ML UDC SWISH SPIT SCH ×4 (10:04→21:52)
[2019-11-16] MEDS: Chlorhexidine MOUTHWASH 0.12% 15 ML UDC SWISH SPIT SCH ×4 (08:45→21:09)
[2019-11-16] MEDS: Enoxaparin 40 MG/0.4 ML SYR SUBCUT SCH (08:45)
[2019-11-17] MEDS: Chlorhexidine MOUTHWASH 0.12% 15 ML UDC SWISH SPIT SCH ×4 (08:34→21:33)
[2019-11-17] MEDS: Enoxaparin 40 MG/0.4 ML SYR SUBCUT SCH (08:34)
[2019-11-18] MEDS: Chlorhexidine MOUTHWASH 0.12% 15 ML UDC SWISH SPIT SCH ×4 (07:57→20:11)
[2019-11-18] MEDS: Enoxaparin 40 MG/0.4 ML SYR SUBCUT SCH (07:59)
[2019-11-19 06:26] LABS: ABS Eosinophils 0.1 10^3/ul (0-0.6); ABS Lymphocytes 1.7 10^3/ul (1.0-4.8); ABS Monocytes 0.4 10^3/ul (0-0.8); ABS Neutrophils 3.8 10^3/ul (1.5-7.7); Hematocrit 33 % (35-47); Hemoglobin 11.4 g/dL (12.0-16.0); Lymphocyte % 27.5 %; Mean Corpuscular HGB Conc 34 g/dL (31-36); Mean Corpuscular Hemoglobin 32 pg (27-31); Mean Corpuscular Volume 94 fL (80-97); Mean Platelet Volume 7.5 fL (7.4-10.4); Platelet Count 212 10^3/uL (150-450); Red Blood Count 3.56 10^6 /uL (3.70-4.87); Red Cell Distribution Width 15 % (10-15)
[2019-11-19 06:41] LABS: Albumin 3.4 g/dL (3.2-5.2); Anion Gap 5 mmol/L (2-11); CO2 Carbon Dioxide 25 mmol/L (22-32); Calcium 8.5 mg/dL (8.6-10.3); Chloride 106 mmol/L (101-111); Potassium 3.7 mmol/L (3.5-5.0); Sodium 136 mmol/L (135-145)
[2019-11-19 06:47] LABS: ALT 89 U/L (7-52); AST 60 U/L (13-39); Albumin/Globulin Ratio 1.5 (1-3); Alkaline Phosphatase 175 U/L (34-104); BUN/Creatinine Ratio 14.6 (8-20); Blood Urea Nitrogen 7 mg/dL (6-24); EGFR African American 179.1 (>60); Globulin 2.3 g/dL (2-4); Glucose 89 mg/dL (70-100); Total Protein 5.7 g/dL (6.4-8.9)
[2019-11-19] MEDS: Chlorhexidine MOUTHWASH 0.12% 15 ML UDC SWISH SPIT SCH ×3 (08:21→20:24)
[2019-11-20 05:02] VITALS: BP 113/77
[2019-11-20] MEDS: Chlorhexidine MOUTHWASH 0.12% 15 ML UDC SWISH SPIT SCH (08:33)
== END 2019-11-20 14:00 | disposition home health service (06) | DRG 860 ==
LOC: PMRU 14:11
PROVIDERS: ADMIT Physical Medicine & Rehabilitation; ATTEND Physical Medicine & Rehabilitation

== ENCOUNTER 2020-06-29 19:28 | Inpatient (IN) ==
[2020-06-29] MEDS ORDERED: Lactated Ringers 1000 ml BAG 1,000 ML IV ONE (21:42)
[2020-06-29] MEDS ORDERED: Dinoprostone 10 MG VAG.SUPP VAGINAL ONE (21:42)
[2020-06-29] MEDS ORDERED: Buffered Lidocaine 1% SYRIN 1 ml INTRADERM ONE (21:42)
[2020-06-29] MEDS ORDERED: Lactated Ringers 1000 ml BAG 1,000 ML IV SCH (22:00)
[2020-06-29 22:49] LABS: Urine Benzodiazepine Screen None Detected (None Detect); Urine Cannabinoids Screen Presumptive Positive (None Detect); Urine Opiates Screen None Detected (None Detect)
[2020-06-30] MEDS ORDERED: Dinoprostone 10 MG VAG.SUPP VAGINAL ONE (09:37)
[2020-06-30] MEDS ORDERED: Oxytocin in LR 20 UNITS/1,000 ML BAG IVPB SCH (23:00)
[2020-06-30] MEDS ORDERED: diPHENhydraMINE 25 mg TAB PO ONE (23:37)
[2020-06-30 23:38] LABS: ABS Eosinophils 0.1 10^3/ul (0-0.6); ABS Lymphocytes 2.3 10^3/ul (1.0-4.8); ABS Monocytes 0.6 10^3/ul (0-0.8); ABS Neutrophils 6.5 10^3/ul (1.5-7.7); Eosinophil % 1.3 %; Hematocrit 39 % (35-47); Hemoglobin 13.6 g/dL (12.0-16.0); Lymphocyte % 23.9 %; Mean Corpuscular HGB Conc 35 g/dL (31-36); Mean Corpuscular Hemoglobin 33 pg (27-31); Mean Corpuscular Volume 94 fL (80-97); Mean Platelet Volume 9.5 fL (7.4-10.4); Platelet Count 137 10^3/uL (150-450); Red Blood Count 4.18 10^6 /uL (3.70-4.87); Red Cell Distribution Width 14 % (10-15); White Blood Count 9.5 10^3/uL (3.5-10.8)
[2020-07-01] MEDS ORDERED: OBEPIDURAL 250 ML EPIDURAL ONE (07:55)
[2020-07-01] MEDS ORDERED: Bupivacaine 0.25% SDV PF 10 ML VIAL INJ ONE (08:02)
[2020-07-01] MEDS ORDERED: Phenylephrine 40 mcg/mL 10mL (400mcg) SYRINGE IV PUSH PRN ×2 (08:37)
[2020-07-01] MEDS ORDERED: Lactated Ringers 1000 ml BAG 1,000 ML IV ONE (08:37)
[2020-07-01] MEDS ORDERED: EPHEDrine (Pressors) 50 MG/ML VIAL IV PUSH PRN ×2 (08:37)
[2020-07-01] MEDS ORDERED: Sodium Citrate/Citric Acid LIQ 15 ML UDC PO PRN (08:37)
[2020-07-01] MEDS ORDERED: Lactated Ringers 1000 ml BAG 1,000 ML IV SCH ×2 (09:00→16:00)
[2020-07-01] MEDS ORDERED: OBEPIDURAL 250 ML EPIDURAL SCH (09:00)
[2020-07-01] MEDS ORDERED: Witch Hazel PAD JAR ONE (14:37)
[2020-07-01] MEDS ORDERED: Dibucaine 1% OINT 28.35 GM TUBE ONE (14:37)
[2020-07-01] MEDS ORDERED: Dibucaine 1% OINT 28.35 GM TUBE PR PRN (15:50)
[2020-07-01] MEDS ORDERED: Glycerin ADULT 2.4 gm SUPP PR PRN (15:50)
[2020-07-01] MEDS ORDERED: Witch Hazel PAD JAR TOPICAL PRN (15:50)
[2020-07-01 18:21] LABS: Urine Appearance Clear; Urine Bilirubin Negative (Negative); Urine Blood 1+ (Negative); Urine Color Yellow; Urine Glucose Negative (Negative); Urine Ketones Negative (Negative); Urine Nitrite Negative (Negative); Urine Protein Negative (Negative); Urine Specific Gravity 1.016 (1.010-1.030); Urine Urobilinogen Negative (Negative)
[2020-07-01 18:24] LABS: Urine Bacteria Absent (Absent); Urine Red Blood Cell 1+(3-5/hpf) (Absent); Urine Squamous Epithelial Cell Present (Absent); Urine White Blood Cell Trace(0-5/hpf) (Absent)
[2020-07-02 06:57] LABS: ABS Lymphocytes 1.7 10^3/ul (1.0-4.8); ABS Monocytes 0.4 10^3/ul (0-0.8); ABS Neutrophils 8.8 10^3/ul (1.5-7.7); Eosinophil % 0.5 %; Hematocrit 36 % (35-47); Hemoglobin 12.2 g/dL (12.0-16.0); Lymphocyte % 15.5 %; Mean Corpuscular HGB Conc 34 g/dL (31-36); Mean Corpuscular Hemoglobin 33 pg (27-31); Mean Corpuscular Volume 95 fL (80-97); Mean Platelet Volume 9.4 fL (7.4-10.4); Platelet Count 104 10^3/uL (150-450); Red Blood Count 3.76 10^6 /uL (3.70-4.87); Red Cell Distribution Width 14 % (10-15)
[2020-07-02 12:05] VITALS: BP 116/66
[2020-07-02] MEDS ORDERED: Tetan/Diph/Pertus SYR(Tdap) 0.5 ML SYR(BOOSTRIX) use SYR contains LATEX IM ONE (13:03)
[2020-07-02] MEDS ORDERED: Influenza VAC *QUAD* 2020-21* 0.5 ML SYRINGE IM ONE (13:03)
== END 2020-07-02 16:56 | disposition home or self-care (01) | DRG 560 ==
LOC: MCHOBOUT 19:28 → MCHOB 20:06
PROVIDERS: ADMIT Obstetrics & Gynecology; ATTEND Obstetrics & Gynecology